=== PATIENT | female | born 2000 | race Caucasian/White ===

== ENCOUNTER 2021-04-27 11:20 | Inpatient (IN) ==
[2021-04-27] MEDS ORDERED: SODIUM CHLORIDE 0.9% 1000ML 1,000 ML IV ONE (12:12)
[2021-04-27] MEDS ORDERED: ONDANSETRON INJ 2 MG/ML 2 ML VIAL IV STA (12:12)
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
[2021-04-27 12:43] LABS: Basophils # (auto) 0.02 K/uL (0-0.2); Basophils % (auto) 0.1 %; Eosinophils # (auto) 0.03 K/uL (0-0.5); Eosinophils % (auto) 0.2 %; Hematocrit (blood only) 36.1 % (37-47); Hemoglobin 12.2 g/dL (12.0-16.0); Immature Granulocytes # (auto) 0.04 K/uL (0.00-0.02); Immature Granulocytes % (auto) 0.2 %; Lymphocytes % (auto) 7.3 %; Mean Corpuscular Hemoglobin 29.7 pg (25-34); Mean Corpuscular Hgb Conc 33.8 g/dL (32-36); Mean Corpuscular Volume 87.8 fL (80-100); Mean Platelet Volume 10.3 fL (7.4-10.4); Monocytes % (auto) 7.3 %; Neutrophils # (auto) 13.95 K/uL (1.4-6.5); Neutrophils % (auto) 84.9 %; Platelet Count 222 K/uL (130-400); RDW Coefficient of Variation 12.4 % (11.5-14.5); RDW Standard Deviation 39.6 fL (36.4-46.3); Red Blood Count 4.11 M/uL (4.2-5.4); White Blood Count 16.44 K/uL (4.8-10.8)
[2021-04-27 13:00] LABS: Pregnancy Test, Serum Negative (Negative)
[2021-04-27 13:04] LABS: Albumin Level 3.1 gm/dl (3.4-5.0); BUN Creatinine Ratio 15.3 (10-20); Calcium 9.1 mg/dl (8.5-10.1); Creatinine Clr Calc Pharmacy 177.2 ml/min; Est GFR (African American) 148.9 ml/min; Est GFR (Non-African American) 128.5 ml/min; Potassium 3.6 mmol/L (3.5-5.1)
[2021-04-27] MEDS ORDERED: KETOROLAC TROMETHAMINE 15 MG/ML VIAL IV ONE (13:04)
[2021-04-27 13:06] LABS: Albumin Globulin Ratio 0.8 (0.9-2); Bilirubin,Total 1.1 mg/dl (0.2-1); Globulin 3.9 gm/dl (2.5-4.0)
[2021-04-27] MEDS ORDERED: OPTIRAY 320 100ml IV ONE (13:30)
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
[2021-04-27] MEDS ORDERED: cefTRIAXone SODIUM 2,000 MG/70 ML BAG IV STA (14:00)
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
[2021-04-27] MEDS ORDERED: ACETAMINOPHEN 1,000 MG/100 ML VIAL IV STA (16:34)
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
[2021-04-27] MEDS ORDERED: ALUMINUM/MAGNESIUM SUSP 30 ML UDC PO PRN (18:46)
[2021-04-27] MEDS ORDERED: VANCOMYCIN CONSULT ACTIVE PRN (18:46)
[2021-04-27] MEDS ORDERED: POLYETHYLENE (MIRALAX) 17 GM PACK PO PRN (18:46)
[2021-04-27] MEDS ORDERED: MAGNESIUM HYDROXIDE SUSP 30 ML UDC PO PRN (18:46)
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
[2021-04-27] MEDS: SODIUM CHLORIDE 0.9% 1000ML 1,000 ML IV SCH (20:00)
[2021-04-27] MEDS ORDERED: VANCOMYCIN HCL 2,750 MG in SODIUM CHLORIDE 0.9% 500 ML IV STA (20:17)
[2021-04-27] MEDS: KETOROLAC TROMETHAMINE 15 MG/ML VIAL IV PRN (20:35)
[2021-04-27 22:43] LABS: Appearance Urine Clear (Clear); Bacteria Urine Automated Negative (Negative); Blood Urine 3+ (Negative); Color Urine Orange; Epithelial Cell Urine Auto >30 /lpf (0-5); Glucose Urine UA Negative (Negative); Ketones Urine 4+ (Negative); Leukocyte Esterase Urine Negative (Negative); Nitrite Urine Negative (Negative); Protein Urine 1+ (Negative); Specific Gravity Urine > 1.045 (1.000-1.030); Urobilinogen Urine Positive (Negative); pH Urine 6.5 (4.5-7.5)
[2021-04-27 22:51] LABS: Bilirubin Urine 1+ (Negative)
[2021-04-27 23:04] LABS: Mucus Urine Present (None Prsent)
[2021-04-28] MEDS: KETOROLAC TROMETHAMINE 15 MG/ML VIAL IV PRN ×4 (03:26→23:01)
[2021-04-28] MEDS: ACETAMINOPHEN 325 MG TAB PO PRN ×2 (03:36→19:39)
[2021-04-28] MEDS: VANCOMYCIN HCL 1,500 MG in SODIUM CHLORIDE 0.9% 500 ML IV SCH ×2 (05:09→16:16)
[2021-04-28] MEDS: SODIUM CHLORIDE 0.9% 1000ML 1,000 ML IV SCH ×2 (06:08→10:54)
[2021-04-28 06:36] LABS: Basophils # (auto) 0.02 K/uL (0-0.2); Basophils % (auto) 0.2 %; Eosinophils # (auto) 0.23 K/uL (0-0.5); Eosinophils % (auto) 1.9 %; Hematocrit (blood only) 35.5 % (37-47); Hemoglobin 11.9 g/dL (12.0-16.0); Immature Granulocytes # (auto) 0.02 K/uL (0.00-0.02); Immature Granulocytes % (auto) 0.2 %; Lymphocytes # (auto) 1.24 K/uL (1.2-3.4); Lymphocytes % (auto) 10.1 %; Mean Corpuscular Hemoglobin 29.4 pg (25-34); Mean Corpuscular Hgb Conc 33.5 g/dL (32-36); Mean Corpuscular Volume 87.7 fL (80-100); Mean Platelet Volume 10.3 fL (7.4-10.4); Monocytes # (auto) 0.83 K/uL (0.11-0.59); Monocytes % (auto) 6.7 %; Neutrophils # (auto) 9.96 K/uL (1.4-6.5); Neutrophils % (auto) 80.9 %; Platelet Count 220 K/uL (130-400); RDW Coefficient of Variation 12.3 % (11.5-14.5); RDW Standard Deviation 39.6 fL (36.4-46.3); Red Blood Count 4.05 M/uL (4.2-5.4)
[2021-04-28 07:12] LABS: Alanine Aminotransferase 38 U/L (12-78); Albumin Level 2.7 gm/dl (3.4-5.0); Aspartate Aminotransferase 13 U/L (15-37); BUN Creatinine Ratio 23.8 (10-20); Blood Urea Nitrogen 11 mg/dl (7-18); Calcium 8.7 mg/dl (8.5-10.1); Carbon Dioxide 20 mmol/L (21-32); Chloride 111 mmol/L (98-107); Creatinine Clr Calc Pharmacy 248.5 ml/min; Est GFR (African American) > 150.0 ml/min; Est GFR (Non-African American) 141.2 ml/min; Glucose 77 mg/dl (70-99); Magnesium 2.4 mg/dl (1.8-2.4); Potassium 3.3 mmol/L (3.5-5.1); Sodium 140 mmol/L (136-145)
[2021-04-28 07:15] LABS: Albumin Globulin Ratio 0.8 (0.9-2); Alkaline Phosphatase 77 U/L (45-117); Globulin 3.6 gm/dl (2.5-4.0); Total Protein 6.3 gm/dl (6.4-8.2)
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
--- NOTE | 2021-04-28 11:48 | Anesthesiology Consultation ---
Date of Service April 28, 2021 Assessment & Plan (1) Encounter for pre-operative examination: Chart Review Chart Review: Acceptable Risk for Surgery and Patient NOT seen in Pre Admission Testing Consults Requested none History Surgery Operation Date: 04/28/21 08:30 Proposed Procedures p Right Knee Incision and Drainage of Laceration - Red Vanegas DO s Possible Right Knee Arthrotomy with Incision And Drainage - Red Vanegas DO Height/Weight Height: 5 ft 7 in Weight: 110 kg Allergies Allergy/AdvReac Type Severity Reaction Status Date / Time lorazepam Allergy Unknown severe Verified 04/27/21 13:59 hallucinations Medications Home Medications Medication Instructions Recorded Confirmed Last Taken cephalexin 500 mg PO Q6H 14 Days #56 cap 04/25/21 04/27/21 04/26/21 norethindrone-e.estradiol-iron 1 tab PO QAM 04/25/21 04/27/21 04/26/21 [Jorge Luis Fe 12/10 ()] oxycodone 5 mg PO Q6H PRN #20 tab 04/25/21 04/27/21 04/26/21 14:00 sulfamethoxazole-trimethoprim 1 tab PO BID 14 Days #28 tab 04/25/21 04/27/21 04/26/21 [Bactrim DS] acetaminophen [Tylenol Extra 500 mg PO Q6H PRN 04/27/21 04/27/21 04/27/21 09:00 Strength] Active Medications Generic Name Dose Route Start Last Admin Trade Name Freq PRN Reason Stop Dose Admin Sodium Chloride 1,000 mls @ 100 mls/hr 04/27/21 18:46 04/28/21 10:54 Nss 1000ml IV 05/27/21 18:45 100 mls/hr .Q10H MARY Administration Vancomycin HCl 1,500 mg/ 530 mls @ 200 mls/hr 04/28/21 05:00 04/28/21 07:48 Sodium Chloride IV 05/05/21 04:59 Infused Q8H MARY Infusion Protocol Ketorolac Tromethamine 15 mg 04/27/21 18:46 04/28/21 10:49 Ketorolac Tromethamine 15 Mg/Ml Vial IV 05/02/21 18:45 15 mg Q6H PRN Administration Pain Miscellaneous 1 ea 04/28/21 00:00 04/28/21 07:35 Jorge Luis Fe 1/20 (28) - Order Awaiting Action N/A 05/28/21 00:00 Not Given QS MARY Past Medical History Medical History Anxiety Epilepsy Juvenile Past Family History Family History Mother Cancer Rheumatoid arthritis Grandfather (Maternal) Stroke Past Surgical History Surgical History S/P bunionectomy Social History Smoking Status: Smoker, status unknown Do You Dip or Chew Tobacco: No Hx Alcohol Use: Yes alcohol intake frequency: holidays/special occasions only Hx Substance Use: Yes substance use type: marijuana Last Used Substance: Days (ago) Physical Exam Vital Signs Last Vital Signs Temp 37.0 C 04/28/21 11:00 Pulse 104 H 04/28/21 11:00 Resp 17 04/28/21 11:00 BP 139/74 04/28/21 11:00 Pulse Ox 97 04/28/21 11:00 Testing Laboratory Results 04/28/21 06:21 04/28/21 06:21 Urine Color [place] 04/27/21 22:30 Urine Appearance Clear (Clear) 04/27/21 22:30 Urine pH 6.5 (4.5-7.5) 04/27/21 22:30 Ur Specific [place] > 1.045 (1.000-1.030) H 04/27/21 22:30 Urine Protein 1+ (Negative) H 04/27/21 22:30 Urine Glucose (UA) Negative (Negative) 04/27/21 22:30 Urine Ketones 4+ (Negative) H 04/27/21 22:30 Urine Nitrite Negative (Negative) 04/27/21 22:30 Ur Leukocyte Esterase Negative (Negative) 04/27/21 22:30 Urine WBC (Auto) 1-5 /hpf (0-5) 04/27/21 22:30 Urine RBC (Auto) 10-30 /hpf (0-4) H 04/27/21 22:30 U Hyaline Cast (Auto) 5-10 /lpf (0-5) H 04/27/21 22:30 U Epithel Cells (Auto) >30 /lpf (0-5) H 04/27/21 22:30 Urine Bacteria (Auto) Negative (Negative) 04/27/21 22:30 Other Testing UPT - neg
[2021-04-28] MEDS ORDERED: ePHEDrine sulfate 50 MG/ML AMP IV PRN (12:23)
[2021-04-28] MEDS ORDERED: ATROPINE SULFATE 0.1 MG/ML 10ML SYR IV PRN (12:23)
[2021-04-28] MEDS ORDERED: ONDANSETRON INJ 2 MG/ML 2 ML VIAL IV PRN (12:23)
[2021-04-28] MEDS ORDERED: PROMETHAZINE HCL 12.5 MG in SODIUM CHLORIDE 0.9% 50 ML IV PRN (12:23)
[2021-04-28] MEDS ORDERED: fentaNYL citrate 100 MCG/2 ML VIAL IV PRN (12:23)
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
[2021-04-28] MEDS ORDERED: LIDOCAINE 2% 2 ML VIAL/AMP(20MG/ML) INFIL ONE (12:27)
[2021-04-28] MEDS ORDERED: PROPOFOL IV EMULSION 10 MG/ML 20 ML VIAL IV ONE ×2 (12:27→14:44)
[2021-04-28] MEDS ORDERED: ONDANSETRON INJ 2 MG/ML 2 ML VIAL ONE (12:27)
[2021-04-28] MEDS ORDERED: DEXAMETHASONE SOD INJ 4 MG/ML VIAL ONE (12:27)
[2021-04-28] MEDS ORDERED: fentaNYL citrate 100 MCG/2 ML VIAL ONE (12:27)
[2021-04-28] MEDS ORDERED: KETOROLAC 30 MG/ML VIAL ONE (12:27)
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
[2021-04-28] MEDS ORDERED: ACETAMINOPHEN 1000 MG/100 ML IV IV ONE (13:35)
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
--- NOTE | 2021-04-28 15:27 | Anesthesiology Progress Note ---
Date of Service April 28, 2021 Anesthesia Post Procedure Vital Signs Vital Signs: Temp Pulse Pulse Pulse Resp BP Pulse Ox 04/28/21 12:03 37.2 C 99 H 20 135/82 97 04/28/21 11:00 37.0 C 104 H 17 139/74 97 04/28/21 08:00 83 04/28/21 07:31 37.0 C 100 H 17 126/81 97 04/28/21 03:29 37.2 C 100 H 18 145/84 H 96 04/28/21 00:45 83 04/27/21 22:32 37 C 89 16 144/84 H 97 04/27/21 20:05 37.1 C 86 18 144/77 H 98 04/27/21 18:58 94 H 04/27/21 18:49 36.5 C 98 H 14 124/72 98 Pulse Ox 04/28/21 12:03 04/28/21 11:00 04/28/21 08:00 04/28/21 07:31 04/28/21 03:29 04/28/21 00:45 04/27/21 22:32 04/27/21 20:05 04/27/21 18:58 04/27/21 18:49 97 Pain Intensity Right Arm: Pain Intensity: 0 Right Knee: Pain Intensity: 0 Transfer of Care Handoff Completed per policy Notes Mental Status: alert / awake / arousable and participated in evaluation Patient Amnestic to Procedure: Yes Nausea / Vomiting: adequately controlled Pain: adequately controlled Airway Patency, RR, SpO2: stable & adequate BP & HR: stable & adequate Hydration State: stable & adequate Anesthetic Complications: no major complications apparent and Pt Satisfied with anesthetic care
--- NOTE | 2021-04-28 15:58 | Anesthesiology Progress Note ---
Date of Service April 28, 2021 Anesthesia Post Procedure Vital Signs Vital Signs: Temp Pulse Pulse Pulse Pulse Resp BP 04/28/21 15:50 36.6 C 87 21 132/85 04/28/21 15:40 36.6 C 84 20 132/85 04/28/21 15:30 90 15 161/97 H 04/28/21 15:20 110 H 18 163/99 H 04/28/21 15:14 36.7 C 110 H 18 141/114 H 04/28/21 12:03 37.2 C 99 H 20 135/82 04/28/21 11:00 37.0 C 104 H 17 139/74 04/28/21 08:00 83 04/28/21 07:31 37.0 C 100 H 17 126/81 04/28/21 03:29 37.2 C 100 H 18 145/84 H 04/28/21 00:45 83 04/27/21 22:32 37 C 89 16 144/84 H 04/27/21 20:05 37.1 C 86 18 144/77 H 04/27/21 18:58 94 H 04/27/21 18:49 36.5 C 98 H 14 124/72 Pulse Ox Pulse Ox 04/28/21 15:50 951 H 04/28/21 15:40 98 04/28/21 15:30 97 04/28/21 15:20 97 04/28/21 15:14 99 04/28/21 12:03 97 04/28/21 11:00 97 04/28/21 08:00 04/28/21 07:31 97 04/28/21 03:29 96 04/28/21 00:45 04/27/21 22:32 97 04/27/21 20:05 98 04/27/21 18:58 04/27/21 18:49 98 97 Pain Intensity Right Arm: Pain Intensity: 0 Right Knee: Pain Intensity: 2 Transfer of Care Handoff Completed per policy Notes Mental Status: alert / awake / arousable Patient Amnestic to Procedure: Yes Nausea / Vomiting: adequately controlled Pain: adequately controlled Airway Patency, RR, SpO2: stable & adequate BP & HR: stable & adequate Hydration State: stable & adequate Anesthetic Complications: no major complications apparent
[2021-04-28] MEDS: ONDANSETRON INJ 2 MG/ML 2 ML VIAL IV PRN (16:17)
[2021-04-28] MEDS ORDERED: VANCOMYCIN TROUGH ONE ×2 (20:30→23:30)
[2021-04-29] MEDS: VANCOMYCIN HCL 1,500 MG in SODIUM CHLORIDE 0.9% 500 ML IV SCH ×4 (00:22→23:54)
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
[2021-04-29] MEDS: KETOROLAC TROMETHAMINE 15 MG/ML VIAL IV PRN ×3 (06:25→22:27)
[2021-04-29] MEDS: ONDANSETRON INJ 2 MG/ML 2 ML VIAL IV PRN ×2 (06:27→11:34)
[2021-04-29] MEDS: SODIUM CHLORIDE 0.9% 1000ML 1,000 ML IV SCH ×2 (07:45→11:34)
[2021-04-29 08:05] LABS: Hematocrit (blood only) 33.7 % (37-47); Hemoglobin 11.4 g/dL (12.0-16.0); Mean Corpuscular Hemoglobin 29.5 pg (25-34); Mean Corpuscular Volume 87.3 fL (80-100); Mean Platelet Volume 11.1 fL (7.4-10.4); Platelet Count 239 K/uL (130-400); RDW Coefficient of Variation 12.3 % (11.5-14.5); RDW Standard Deviation 39.4 fL (36.4-46.3); Red Blood Count 3.86 M/uL (4.2-5.4); White Blood Count 11.41 K/uL (4.8-10.8)
[2021-04-29 08:15] LABS: BUN Creatinine Ratio 22.1 (10-20); Blood Urea Nitrogen 10 mg/dl (7-18); Calcium 8.6 mg/dl (8.5-10.1); Carbon Dioxide 23 mmol/L (21-32); Chloride 112 mmol/L (98-107); Creatinine Clr Calc Pharmacy 243.1 ml/min; Est GFR (African American) > 150.0 ml/min; Est GFR (Non-African American) 140.2 ml/min; Glucose 88 mg/dl (70-99); Potassium 3.6 mmol/L (3.5-5.1); Sodium 141 mmol/L (136-145)
[2021-04-29 08:19] LABS: Mean Corpuscular Hgb Conc 33.8 g/dL (32-36)
--- NOTE | 2021-04-29 11:00 | Orthopedic Progress Note ---
Date of Service April 29, 2021 Assessment & Plan (1) Wound infection: Postop day 1 status post I&D right knee wound infection Patient may be out of bed weightbearing as tolerated with the immobilizer on. Plan for dressing change likely starting tomorrow with packing removal. Pain management as written Cultures from the OR showing rare gram-positive cocci. Patient currently on vancomycin. Await final cultures. Okay for patient to be transferred to [facility] floor if okay with medicine serv ice. Admission and Anticipated Discharge Date Admission Date: April 27, 2021 Subjective Postop day 1 Patient sitting up in bed awake and alert. She is eating a late breakfast. She states that the pain is controlled at this time. No new complaints. Discussed use of her immobilizer and weightbearing status. Physical Exam Physical Exam: Dressings are clean, dry, and intact. Calves are soft and nontender. Neurovascular is intact. Toes are mobile. Results & Data ([facility]) Vital Signs (Past 12 Hours) Vital Signs Temp Pulse Pulse Pulse Resp BP Pulse Ox 04/29/21 08:00 89 04/29/21 07:28 36.9 C 73 16 127/83 96 04/29/21 04:18 36.9 C 90 18 113/75 96 04/29/21 00:00 76 04/28/21 23:36 37.1 C 73 17 120/75 94 Laboratory Results Laboratory Results WBC 11.41 K/uL (4.8-10.8) H 04/29/21 05:30 RBC 3.86 M/uL (4.2-5.4) L 04/29/21 05:30 Hgb 11.4 g/dL (12.0-16.0) L 04/29/21 05:30 Hct 33.7 % (37-47) L 04/29/21 05:30 MCV 87.3 fL (80-100) 04/29/21 05:30 MCH 29.5 pg (25-34) 04/29/21 05:30 MCHC 33.8 g/dL (32-36) 04/29/21 05:30 RDW Std Deviation 39.4 fL (36.4-46.3) 04/29/21 05:30 RDW Coeff of Carlos 12.3 % (11.5-14.5) 04/29/21 05:30 Plt Count 239 K/uL (130-400) 04/29/21 05:30 MPV 11.1 fL (7.4-10.4) H 04/29/21 05:30 Immature Gran % (Auto) 0.2 % 04/28/21 06:21 Neut % (Auto) 80.9 % 04/28/21 06:21 Lymph % (Auto) 10.1 % 04/28/21 06:21 Braxton % (Auto) 6.7 % 04/28/21 06:21 Eos % (Auto) 1.9 % 04/28/21 06:21 Baso % (Auto) 0.2 % 04/28/21 06:21 Neut # (Auto) 9.96 K/uL (1.4-6.5) H 04/28/21 06:21 Lymph # (Auto) 1.24 K/uL (1.2-3.4) 04/28/21 06:21 Braxton # (Auto) 0.83 K/uL (0.11-0.59) H 04/28/21 06:21 Eos # (Auto) 0.23 K/uL (0-0.5) 04/28/21 06:21 Baso # (Auto) 0.02 K/uL (0-0.2) 04/28/21 06:21 Immature Gran # (Auto) 0.02 K/uL (0.00-0.02) 04/28/21 06:21 ESR 47 mm/hr (0-20) H 04/28/21 06:21 Sodium 141 mmol/L (136-145) 04/29/21 06:11 Potassium 3.6 mmol/L (3.5-5.1) 04/29/21 06:11 Chloride 112 mmol/L (98-107) H 04/29/21 06:11 Carbon Dioxide 23 mmol/L (21-32) 04/29/21 06:11 Anion Gap 6.0 (3-11) 04/29/21 06:11 BUN 10 mg/dl (7-18) 04/29/21 06:11 Creatinine 0.46 mg/dl (0.6-1.2) L 04/29/21 06:11 Est Cr Clr Drug Dosing 243.1 ml/min 04/29/21 06:11 Est GFR ( Amer) > 150.0 ml/min 04/29/21 06:11 Est GFR (Non-Af Amer) 140.2 ml/min 04/29/21 06:11 BUN/Creatinine Ratio 22.1 (10-20) H 04/29/21 06:11 Glucose 88 mg/dl (70-99) 04/29/21 06:11 Calcium 8.6 mg/dl (8.5-10.1) 04/29/21 06:11 Magnesium 2.0 mg/dl (1.8-2.4) 04/29/21 06:07 Total Bilirubin 1.0 mg/dl (0.2-1) 04/28/21 06:21 AST 13 U/L (15-37) L 04/28/21 06:21 ALT 38 U/L (12-78) 04/28/21 06:21 Alkaline Phosphatase 77 U/L (45-117) 04/28/21 06:21 C-Reactive Protein 17.20 mg/dl (0-0.29) H 04/28/21 06:21 Total Protein 6.3 gm/dl (6.4-8.2) L 04/28/21 06:21 Albumin 2.7 gm/dl (3.4-5.0) L 04/28/21 06:21 Globulin 3.6 gm/dl (2.5-4.0) 04/28/21 06:21 Albumin/Globulin Ratio 0.8 (0.9-2) L 04/28/21 06:21 Lipase 62 U/L (73-393) L 04/27/21 12:30 HCG, Qual Negative (Negative) 04/27/21 12:30 Urine Color [place] 04/27/21 22:30 Urine Appearance Clear (Clear) 04/27/21 22:30 Urine pH 6.5 (4.5-7.5) 04/27/21 22:30 Ur Specific [place] > 1.045 (1.000-1.030) H 04/27/21 22:30 Urine Protein 1+ (Negative) H 04/27/21 22:30 Urine Glucose (UA) Negative (Negative) 04/27/21 22:30 Urine Ketones 4+ (Negative) H 04/27/21 22:30 Urine Blood 3+ (Negative) H 04/27/21 22:30 Urine Nitrite Negative (Negative) 04/27/21 22:30 Urine Bilirubin 1+ (Negative) H 04/27/21 22:30 Urine Urobilinogen Positive (Negative) H 04/27/21 22:30 Ur Leukocyte Esterase Negative (Negative) 04/27/21 22:30 Urine WBC (Auto) 1-5 /hpf (0-5) 04/27/21 22:30 Urine RBC (Auto) 10-30 /hpf (0-4) H 04/27/21 22:30 U Hyaline Cast (Auto) 5-10 /lpf (0-5) H 04/27/21 22:30 U Epithel Cells (Auto) >30 /lpf (0-5) H 04/27/21 22:30 Urine Bacteria (Auto) Negative (Negative) 04/27/21 22:30 Urine Mucus Present (None Prsent) A 04/27/21 22:30 Urine Yeast Not Reportable 04/27/21 22:30 Vancomycin Trough 14.0 mcg/ml (See Comment) 04/28/21 23:24 COVID-19 Eval Order Covid19 at [facility] 04/27/21 14:22 SARS-CoV-2 (PCR) NEGATIVE (Negative) 04/27/21 14:22
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
--- NOTE | 2021-04-29 14:54 | Pharmacy Report ---
Pharmacy Abx Dose Short Note - Date of Service April 29, 2021 - Assessment & Plan Assessment 21 year old F receiving vancomycin/ceftriaxone for treatment of SSTI/degloving wound Day # 3 of vancomycin, ceftriaxone added today, preliminary knee culture growing gram negative bacilli. Plan Vancomycin * Trough level of 14 mcg/mL is slightly below goal, however trough drawn prior to steady state and patient at risk for accumulation with BMI >35. * Continue dose of 1500 mg q8H * Goal trough level 15-20 mcg/mL * Trough ordered for 04/29 @1530 Pharmacy will continue to follow and will adjust dose/frequency as necessary. Thank you.
[2021-04-29] MEDS: cefTRIAXone SODIUM 2,000 MG in DEXTROSE 5% 50 ML IV SCH (15:29)
[2021-04-29] MEDS ORDERED: VANCOMYCIN TROUGH ONE (15:30)
--- NOTE | 2021-04-29 15:59 | XRay Report ---
KUB HISTORY: Nausea. Generalized abdominal pain. Rule out obstruction COMPARISON: Abdomen and pelvis CT 04/27/2021. FINDINGS: The bowel gas pattern is unremarkable. There are no dilated loops of small bowel to suggest an obstruction. No renal calculi. No ureteral calculi. No pneumoperitoneum or pneumatosis. IMPRESSION: No evidence for bowel obstruction. ACT 112: Negative or not required by law. Electronically signed by: Darian Hinson M.D. 04/29/2021 3:58 PM
[2021-04-29] MEDS: NEOMYCIN/POLYMYX/BACITR OINT 15 GM TUBE EXT SCH (22:29)
[2021-04-30] MEDS: SODIUM CHLORIDE 0.9% 1000ML 1,000 ML IV SCH ×4 (04:49→21:51)
[2021-04-30] MEDS: KETOROLAC TROMETHAMINE 15 MG/ML VIAL IV PRN ×2 (05:46→11:41)
[2021-04-30 06:15] LABS: Hematocrit (blood only) 32.2 % (37-47); Hemoglobin 10.6 g/dL (12.0-16.0); Mean Corpuscular Hemoglobin 29.4 pg (25-34); Mean Corpuscular Hgb Conc 32.9 g/dL (32-36); Mean Corpuscular Volume 89.4 fL (80-100); Mean Platelet Volume 10.6 fL (7.4-10.4); Platelet Count 244 K/uL (130-400); RDW Coefficient of Variation 12.3 % (11.5-14.5); White Blood Count 7.12 K/uL (4.8-10.8)
[2021-04-30 06:51] LABS: BUN Creatinine Ratio 24.7 (10-20); Blood Urea Nitrogen 10 mg/dl (7-18); Calcium 8.3 mg/dl (8.5-10.1); Carbon Dioxide 23 mmol/L (21-32); Chloride 113 mmol/L (98-107); Creatinine Clr Calc Pharmacy 279.6 ml/min; Est GFR (African American) > 150.0 ml/min; Est GFR (Non-African American) 146.8 ml/min; Glucose 81 mg/dl (70-99); Phosphorus 3.2 mg/dl (2.5-4.9); Potassium 3.5 mmol/L (3.5-5.1); Sodium 143 mmol/L (136-145)
[2021-04-30] MEDS: VANCOMYCIN HCL 1,500 MG in SODIUM CHLORIDE 0.9% 500 ML IV SCH (07:40)
[2021-04-30] MEDS: NEOMYCIN/POLYMYX/BACITR OINT 15 GM TUBE EXT SCH ×2 (07:41→20:14)
--- NOTE | 2021-04-30 12:45 | Orthopedic Progress Note ---
Date of Service April 30, 2021 Assessment & Plan (1) Wound infection: Postop day 2 status post I&D right knee wound infection Patient may be out of bed weightbearing as tolerated with the immobilizer on. Remainder of packing will be removed tomorrow. I do not see a need for a external wound VAC. Pain management as written Cultures as noted. Patient currently on ceftriaxone. Admission and Anticipated Discharge Date Admission Date: April 27, 2021 Subjective Postop day 2 Patient sitting up in bed awake and alert. States that her pain has been controlled. She is nervous about having her packing partially removed today. Wound care nursing and also the patient's floor nurse are present. No new complaints today. Physical Exam Physical Exam: Immobilizer is removed. Current dressing taken down. Her wound appears benign. She has much less erythema and swelling in the area. The wound appears very benign. 1 inch iodoform gauze is protruding out from the wound. 12 inches of the iodoform gauze was removed without difficulty. Patient tolerated it well. The wound was redressed with Adaptic, 4 x 4's, Kerlix, and [place] wrap. Immobilizer was placed back on. Results & Data ([facility]) Vital Signs (Past 12 Hours) Vital Signs Temp Pulse Resp BP Pulse Ox 04/30/21 07:53 37.0 C 85 16 142/91 H 96 04/30/21 03:23 37 C 83 18 140/83 94 Diagnostic Findings Name: JANN AJ Acct: [id number] Status: ADM IN : 2000 [facility] [place] Date: 04/27/21 Age: 21 Sex: F Dis Date: Loc: Medical/Surgical/Ortho 3 [facility] [place]/Bed: W356-1 Spec: [id number] Collected: 04/28/21 Received: 04/28/21-1450 [facility] Dr: Red Vanegas,D.O. Copy To: Crystal Tejeda DO Source: Knee,Right OV Order: Ordered: Aer/Gale Cult/Sm Comments: Comment Culture set #1- Right knee wound Procedure Result Verified Site Gram Stain Final 04/29/21-0850 Gram Stain Result Many Polys Rare Gram Positive Cocci Aero/Gale Cult Preliminary 04/30/21-1202 Organism 1 Aeromonas caviae Quantity Few Sens Sensitivities to Follow +MixWound Plus Low Counts of Probable Skin Anabella A caviae RX M.I.C. --- --------- Amox/Clav I 06/07 Amp/Sul I 06/07 Cefazolin R >16 Cefepime S <=2 Ceftriaxone S <=1 Ciprofloxacin S <=0.25 Gentamicin S <=4 Levofloxacin S <=0.5 Meropenem S <=1 Trimeth/Sulfa S <=2/38 Pip/Tazo S <=16 S = SENSITIVE I = INTERMEDIATE R = RESISTANT
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
[2021-04-30] MEDS: cefTRIAXone SODIUM 2,000 MG in DEXTROSE 5% 50 ML IV SCH (13:56)
[2021-04-30] MEDS: ACETAMINOPHEN 325 MG TAB PO PRN (20:25)
[2021-05-01] MEDS: SODIUM CHLORIDE 0.9% 1000ML 1,000 ML IV SCH ×2 (04:25→20:02)
[2021-05-01] MEDS: ACETAMINOPHEN 325 MG TAB PO PRN ×2 (04:26→10:26)
[2021-05-01 07:47] LABS: Hematocrit (blood only) 34.4 % (37-47); Hemoglobin 11.4 g/dL (12.0-16.0); Mean Corpuscular Hemoglobin 29.4 pg (25-34); Mean Corpuscular Hgb Conc 33.1 g/dL (32-36); Mean Corpuscular Volume 88.7 fL (80-100); Mean Platelet Volume 11.7 fL (7.4-10.4); Platelet Count 235 K/uL (130-400); RDW Coefficient of Variation 12.1 % (11.5-14.5); RDW Standard Deviation 39.2 fL (36.4-46.3); Red Blood Count 3.88 M/uL (4.2-5.4); White Blood Count 8.25 K/uL (4.8-10.8)
[2021-05-01 07:56] LABS: BUN Creatinine Ratio 14.8 (10-20); Blood Urea Nitrogen 6 mg/dl (7-18); Calcium 9.2 mg/dl (8.5-10.1); Carbon Dioxide 24 mmol/L (21-32); Chloride 108 mmol/L (98-107); Creatinine Clr Calc Pharmacy 260.1 ml/min; Est GFR (African American) > 150.0 ml/min; Est GFR (Non-African American) 143.4 ml/min; Glucose 93 mg/dl (70-99); Potassium 3.3 mmol/L (3.5-5.1); Sodium 138 mmol/L (136-145)
[2021-05-01] MEDS ORDERED: POTASSIUM CHLORIDE CRTAB 20 MEQ TABCR PO STA (09:01)
[2021-05-01] MEDS: NEOMYCIN/POLYMYX/BACITR OINT 15 GM TUBE EXT SCH ×2 (09:19→21:41)
[2021-05-01] MEDS: ONDANSETRON INJ 2 MG/ML 2 ML VIAL IV PRN ×2 (10:08→15:57)
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
[2021-05-01] MEDS: cefTRIAXone SODIUM 2,000 MG in DEXTROSE 5% 50 ML IV SCH (15:28)
[2021-05-02 05:59] LABS: Hematocrit (blood only) 34.4 % (37-47); Hemoglobin 11.6 g/dL (12.0-16.0); Mean Corpuscular Hemoglobin 29.1 pg (25-34); Mean Corpuscular Hgb Conc 33.7 g/dL (32-36); Mean Corpuscular Volume 86.2 fL (80-100); Mean Platelet Volume 10.1 fL (7.4-10.4); Platelet Count 260 K/uL (130-400); RDW Coefficient of Variation 11.9 % (11.5-14.5); RDW Standard Deviation 37.2 fL (36.4-46.3); Red Blood Count 3.99 M/uL (4.2-5.4); White Blood Count 8.61 K/uL (4.8-10.8)
[2021-05-02 06:25] LABS: BUN Creatinine Ratio 11.1 (10-20); Blood Urea Nitrogen 5 mg/dl (7-18); Calcium 9.3 mg/dl (8.5-10.1); Carbon Dioxide 27 mmol/L (21-32); Chloride 107 mmol/L (98-107); Creatinine Clr Calc Pharmacy 228.2 ml/min; Est GFR (African American) > 150.0 ml/min; Est GFR (Non-African American) 137.3 ml/min; Glucose 88 mg/dl (70-99); Potassium 3.6 mmol/L (3.5-5.1); Sodium 141 mmol/L (136-145)
[2021-05-02] MEDS: NEOMYCIN/POLYMYX/BACITR OINT 15 GM TUBE EXT SCH ×2 (10:49→19:40)
--- NOTE | 2021-05-02 12:08 | Orthopedic Progress Note ---
Date of Service May 01, 2021 Assessment & Plan (1) Wound infection: Postop day 3 status post I&D right knee wound infection Patient may be out of bed weightbearing as tolerated with the immobilizer on. All packing removed from wound. Pain management as written Cultures as noted. Patient currently on ceftriaxone. As per Medicine Service Admission and Anticipated Discharge Date Admission Date: April 27, 2021 Subjective POD 3 Pt sitting in chair at bedside. Helped back into bed by nursing staff. Pt with some anxious moments off and on with question of nausea. Pt received Zofran at the time of my visit which she states it seemed to help her. Pain controlled. Nervous about getting the rest of the packing removed from her knee wound. No other concerns presently. Physical Exam Physical Exam: Dressings removed. Wound continues to appear benign. Minimimal to no erythema. Swelling continues to resolve. Calves soft, NT. NV intact. All packing removed from the wound without difficulty. Wound redressed. Results & Data ([facility]) Vital Signs (Past 12 Hours) Vital Signs Temp Pulse Resp BP Pulse Ox 05/02/21 07:45 36.9 C 77 16 134/83 95
--- NOTE | 2021-05-02 12:26 | Orthopedic Progress Note ---
Date of Service May 02, 2021 Assessment & Plan (1) Wound infection: Postop day 4 status post I&D right knee wound infection Patient may be out of bed weightbearing as tolerated with the immobilizer on. All packing removed from wound. Pain management as written/needed Cultures as noted. Patient currently on ceftriaxone. Switching to orals upon dc. As per Medicine Service Orthopedics will sign off at this time. No further surgery needed. Continue daily dressing changes. Please call with any questions. Instructions will be placed in the discharge instructions section. Follow-up with Dr. Rosario in 10 to 14 days from the day of surgery. Admission and Anticipated Discharge Date Admission Date: April 27, 2021 Supervising Physician Co-Signing Physician Notes Patient seen and examined. Agree with KWAKU [place]'s note as above. Patient is resting comfortably. Denies any pain in her right knee. Only complains of persistent nausea. Subjective Postop day 4 Patient sitting in her chair at the bedside. Patient states she feels well and is doing well with her physical therapy. She has little to no pain with her PT today. She has not been taking really anything in the way of analgesia. She feels though that the antibiotics are causing her nausea. She is requesting Zofran upon discharge to help with this. No other complaints at this time. Physical Exam Physical Exam: Dressings removed. Wound continues to improve. Essentially no erythema noted. She had some scant drainage on the dressings. She has scant serous drainage noted from the lateral portal where the packing was removed. This area is healing well. Cannot express any further drainage from the wound at this time and palpation is nontender. Suture line is intact. Wound redressed. Results & Data ([facility]) Vital Signs (Past 12 Hours) Vital Signs Temp Pulse Resp BP Pulse Ox 05/02/21 07:45 36.9 C 77 16 134/83 95
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
[2021-05-02] MEDS: ONDANSETRON INJ 2 MG/ML 2 ML VIAL IV PRN (15:40)
[2021-05-02] MEDS: cefTRIAXone SODIUM 2,000 MG in DEXTROSE 5% 50 ML IV SCH (15:40)
[2021-05-03 06:46] LABS: Hematocrit (blood only) 36.7 % (37-47); Hemoglobin 12.5 g/dL (12.0-16.0); Mean Corpuscular Hemoglobin 29.7 pg (25-34); Mean Corpuscular Hgb Conc 34.1 g/dL (32-36); Mean Corpuscular Volume 87.2 fL (80-100); Mean Platelet Volume 10.4 fL (7.4-10.4); Platelet Count 281 K/uL (130-400); RDW Coefficient of Variation 12.3 % (11.5-14.5); RDW Standard Deviation 38.9 fL (36.4-46.3); Red Blood Count 4.21 M/uL (4.2-5.4); White Blood Count 9.65 K/uL (4.8-10.8)
[2021-05-03 07:04] LABS: BUN Creatinine Ratio 18.7 (10-20); Blood Urea Nitrogen 11 mg/dl (7-18); Calcium 9.2 mg/dl (8.5-10.1); Carbon Dioxide 29 mmol/L (21-32); Chloride 104 mmol/L (98-107); Creatinine Clr Calc Pharmacy 192.8 ml/min; Est GFR (African American) > 150.0 ml/min; Est GFR (Non-African American) 129.9 ml/min; Glucose 93 mg/dl (70-99); Potassium 3.8 mmol/L (3.5-5.1); Sodium 139 mmol/L (136-145)
[2021-05-03] MEDS: NEOMYCIN/POLYMYX/BACITR OINT 15 GM TUBE EXT SCH (10:40)
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
== END 2021-05-03 13:24 | disposition home or self-care (01) | DRG 581 ==
LOC: ED 11:20 → SUATTDRO 17:06 → 2E 17:06 → 3W 04-29 12:56
DX: G40.A09 Absence epileptic syndrome, not intractable, without status epilepticus; S80.01XA Contusion of right knee, initial encounter; B96.89 Other specified bacterial agents as the cause of diseases classified elsewhere; S81.001A Unspecified open wound, right knee, initial encounter; V29.9XXA Motorcycle rider (driver) (passenger) injured in unspecified traffic accident, initial encounter; Y92.89 Other specified places as the place of occurrence of the external cause; S93.401A Sprain of unspecified ligament of right ankle, initial encounter; S50.311A Abrasion of right elbow, initial encounter; Z79.3 Long term (current) use of hormonal contraceptives

== ENCOUNTER 2024-01-11 05:37 | Inpatient (IN) ==
--- NOTE | 2024-01-03 12:15 | Anesthesiology Consultation ---
Date of Service January 03, 2024 Assessment & Plan (1) Encounter for pre-operative examination: Chart Review Chart Review: microsystems engineer initiated -Infectious Disease screening: Per PAT nursing assessment on 01/03/24. No known infectious disease contacts in past 10 days or current infectious disease symptoms. No recent travel outside the country. Right Knee I&D 04/28/21= Done under GA with LMA #5 (iGel). Atraumatic x 1 History Surgery Operation Date: 01/11/24 09:00 Proposed Procedures p Section in LD - Renzo Palomino MD Height/Weight Height: 5 ft 7 in Weight: 112.037 kg Allergies Allergy/AdvReac Type Severity Reaction Status Date / Time lorazepam Allergy Unknown severe Verified 01/03/24 11:47 hallucinations Medications Home Medications Medication Instructions Recorded Confirmed Last Taken vitamins no.144-folic 2 tab PO QAM 08/06/23 01/03/24 10/31/23 acid 400 mcg chewable tablet 2100 () ferrous sulfate 325 mg (65 mg 325 mg PO QAM 01/03/24 01/03/24 Unknown iron) tablet Past Medical History Medical History Anxiety Depression Epilepsy - juvenile, last seizure 2008 History of asthma as a child, no current issues History of COVID-19 07/2023, home test, not hosp; low grade fever, sore throat, cough, congestion>resolved Past Family History Family History Mother Rheumatoid arthritis Cancer TIA (transient ischemic attack) Grandfather (Maternal) Stroke Past Surgical History Surgical History Hx of knee surgery I&D Hx of wisdom tooth extraction S/P bunionectomy x2 Social History Smoking Status: Never smoker Do You Dip or Chew Tobacco: No Hx Alcohol Use: Yes alcohol intake frequency: other Alcohol Intake Frequency Comment: very rarely and not while Hx Substance Use: No substance use type: does not use
[2024-01-11] MEDS: LACTATED RINGER'S 1,000 ML IV SCH (06:05)
[2024-01-11 06:36] LABS: Basophils # (auto) 0.03 K/uL (0.00-0.20); Basophils % (auto) 0.3 %; Eosinophils # (auto) 0.17 K/uL (0.00-0.50); Eosinophils % (auto) 1.6 %; Hematocrit (blood only) 35.5 % (37.0-47.0); Hemoglobin 11.9 g/dl (12.0-16.0); Immature Granulocytes # (auto) 0.04 K/uL (0.01-0.20); Immature Granulocytes % (auto) 0.4 %; Lymphocytes # (auto) 1.77 K/uL (1.20-3.40); Lymphocytes % (auto) 16.5 %; Mean Corpuscular Hemoglobin 27.9 pg (25.0-34.0); Mean Corpuscular Hgb Conc 33.5 g/dL (32.0-36.0); Mean Corpuscular Volume 83.3 fL (80.0-100.0); Mean Platelet Volume 11.1 fL (9.4-12.4); Monocytes # (auto) 0.71 K/uL (0.11-0.59); Monocytes % (auto) 6.6 %; Neutrophils # (auto) 8.01 K/uL (1.40-6.50); Neutrophils % (auto) 74.6 %; Platelet Count 221 K/uL (130-400); RDW Coefficient of Variation 14.4 % (11.5-14.5); RDW Standard Deviation 43.5 fL (36.4-46.3); Red Blood Count 4.26 M/uL (4.20-5.40); White Blood Count 10.73 K/ul (4.8-10.8)
[2024-01-11] MEDS ORDERED: MoRPHine SULFATE PF 1 MG/ML 10 ML AMP/VIAL ONE (06:42)
[2024-01-11] MEDS ORDERED: OXYTOCIN 10 UNITS/ML VIAL ONE ×3 (06:43)
[2024-01-11] MEDS ORDERED: fentaNYL citrate PF 100 MCG/2 ML VIAL ONE (06:43)
[2024-01-11] MEDS: CITRIC ACID/SODIUM CITRATE 15 ML UDC PO SCH (07:17)
--- NOTE | 2024-01-11 07:30 | History & Physical Bridge Note ---
Date of Service January 11, 2024 History & Physical Bridge Note I have examined the patient, reviewed the History & Physical and in the interval since the performance of the History & Physical I have noted the following changes of clinical significance: no changes noted Bed side US: Breech confirmed Patient signed an informed consent for Primary Csection All questions were answered.
[2024-01-11] MEDS: ceFAZolin 2000MG 2,000 MG/15 ML SYR IV SCH (07:40)
[2024-01-11] MEDS ORDERED: ONDANSETRON INJ 2 MG/ML 2 ML VIAL ONE (08:23)
[2024-01-11] MEDS ORDERED: NALBUPHINE HCL 5 MG in SYRINGE 0 ML IV PRN (08:28)
[2024-01-11] MEDS ORDERED: ePHEDrine sulfate 50 MG/ML AMP IV PRN (08:28)
[2024-01-11] MEDS ORDERED: diphenhydrAMINE 50 MG/ML VIAL IV PRN (08:28)
[2024-01-11] MEDS ORDERED: NALOXONE HCL 0.4 MG/1 ML VIAL/CARP IV PRN (08:28)
[2024-01-11] MEDS ORDERED: NALOXONE HCL 0.08 MG in SYRINGE 1.8 ML IV PRN (08:28)
[2024-01-11] MEDS ORDERED: MoRPHine SULFATE PF 1 MG/ML 10 ML AMP/VIAL INT SPINAL ONE (08:28)
[2024-01-11] MEDS ORDERED: HYDROmorphone INJ 0.5 MG/0.5 ML SYR IV PRN (08:28)
[2024-01-11] MEDS ORDERED: NALOXONE HCL 1 MG in SODIUM CHLORIDE 0.9% 1,000 ML IV PRN (08:28)
[2024-01-11] MEDS ORDERED: DC INTRASPINAL MORPHINE SCH (08:30)
[2024-01-11] MEDS ORDERED: NO NARCOTICS OR SEDATIVES SCH (08:30)
[2024-01-11] MEDS ORDERED: SODIUM CHLORIDE 0.9% 1,000 ML IV SCH (08:30)
[2024-01-11] MEDS ORDERED: diphenhydrAMINE 50 MG/ML VIAL ONE (09:21)
[2024-01-11] MEDS ORDERED: HYDROCORTISONE ACETATE 25 MG SUPP PR PRN (09:28)
[2024-01-11] MEDS ORDERED: BENZOCAINE 20% SPRY 85 APPLN/85 GM CAN EXT PRN (09:28)
[2024-01-11] MEDS ORDERED: SENNA 8.6 MG TAB PO PRN (09:28)
[2024-01-11] MEDS ORDERED: DIPHTHER/TETAN/PERTUS Vaccine (Tdap, Adol/Adult) 0.5mL IM ONE (09:28)
[2024-01-11] MEDS ORDERED: MAGNESIUM HYDROXIDE SUSP 30 ML UDC PO PRN (09:28)
--- NOTE | 2024-01-11 09:32 | Operative Report ---
Post Operative Report Pre & Post Diagnosis Operation Date: 01/11/24 07:30 Pre-Op Diagnosis: Primary Breech section. Coretta breech. Post-Op Diagnosis: Primary Breech section. Coretta breech. Delivery of live female child at 0822 I identified the patient and participated in the time-out.: Yes Procedure Operation Date: 01/11/24 07:30 Actual Procedures p Primary Section in LD,delivery of live female child at 0822 - Amanda Gatica MD Surgeon Amanda Gatica MD [employer] Machine Setter KWAKU Quach Estimated Blood Loss 500 Findings Consistent with Post-Op Diagnosis Baby was a viable female infant delivered in coretta breech presentation at 0 8:22 AM, Apgars were 8/9, weight is 365 0 g. Maternal findings, normal uterus, fallopian tubes and ovaries. Specimens Placenta Drains Reed catheter drained 50 mL of clear urine Anesthesia Type Spinal Complications none Indications Patient is a 23-year-old G1, P0 at 39 weeks and 1 day gestation who was scheduled for primary section for persistent breech presentation at term. Bedside ultrasound was done before surgery and confirmed coretta breech presentation. Description of Procedure Patient was taken to operating room where a spinal anesthesia was given without difficulty. She was placed in dorsal supine position with a leftward tilt. She was prepared and draped in usual sterile fashion. A financial skin incision was made and carried through to the underlying layer of fascia with the Bovie. Fascia was incised in the midline and incision was extended laterally with the help of Walker scissors. Then the upper aspect of the fascial incision was grasped with 2 Marlon clamps elevated the underlying rectus muscles were dissected off sharply with Walker scissors. Same thing was done on the lower incision. Then the muscles were in the midline, peritoneum was identified grasped with 2 pickups and entered sharply with Metzenbaum scissors. Peritoneal incision was extended superior and inferiorly with good visualization of the bladder. The bladder blade was inserted. Vesicouterine peritoneum was identified, grasped with pickups and entered sharply with Metzenbaum scissors, bladder flap was created digitally and bladder blade was reinserted. Uterus was incised in transverse fashion, incision was extended laterally with our appendage scissors, membranes were ruptured and clear fluid was obtained. Baby's buttocks were delivered, followed by legs and arms in flexion position and then head without difficulty. Mouth and nose were suctioned there was dried on the field he was vigorously crying and moving. The cord was clamped times and cut at 1 minute delay and then the was handed off to the pediatric team. Then the placenta was delivered manually as intact and complete. Uterus was externalized and cleared of all clots and debris's. Uterine incision was repaired with 0 Vicryl in a running locked fashion, second umbricating layer was placed with the same suture in running locked fashion. Excellent hemostasis achieved. Cul-de-sac and the pelvis was irrigated with warm normal saline and suctioned. Incision was checked of hemostatic again. Uterus was returned to the abdomen, parietal peritoneum was reapproximated with 3-0 Vicryl in a running fashion and the muscles were reapproximated in the same suture in a running fashion. All of the fascia and rectus muscles were hemostatic. Rectus fascia was reapproximated with 0 Vicryl in continuous fashion. Subcuticular fat tissue was brought together with 2-0 Vicryl in a running fashion, skin was closed with 4-0 Monocryl in a subcuticular cuticular fashion. The incision was covered with karlos dressing. The mom and baby tolerated procedure well. Sponge needle instrument count was correct x3. No complications happened, I was present during whole procedure. My student assistant was needed for retraction, hemostasis and aid during delivery of infant I attest to the content of the Intraoperative Record and any orders documented therein. Any exceptions are noted below.
--- NOTE | 2024-01-11 09:36 | Anesthesiology Progress Note ---
Date of Service January 11, 2024 Anesthesia Post Procedure Vital Signs Vital Signs: Temp Pulse Resp BP 01/11/24 09:27 67 129/61 01/11/24 07:10 92 H 144/82 H 01/11/24 07:07 16 01/11/24 07:07 16 01/11/24 06:20 96 H 138/89 01/11/24 06:04 105 H 139/94 01/11/24 05:51 37.2 C 18 Notes Mental Status: alert / awake / arousable Patient Amnestic to Procedure: Yes Nausea / Vomiting: adequately controlled Pain: adequately controlled Airway Patency, RR, SpO2: stable & adequate BP & HR: stable & adequate Hydration State: stable & adequate Neuraxial Anesthesia: was administered and sensory block is resolving Anesthetic Complications: no major complications apparent
[2024-01-11] MEDS: LACTATED RINGER'S 500 ML IV PRN (09:45)
[2024-01-11] MEDS: OXYTOCIN 20 UNITS/LR 1,002 ML IV SCH (10:20)
[2024-01-11] MEDS: KETOROLAC 30 MG/ML VIAL IV PRN (10:35)
[2024-01-11] MEDS: DROPERIDOL 5 MG/2 ML VIAL IV ONE (12:44)
[2024-01-11] MEDS: PROMETHAZINE HCL 6.25 MG in SODIUM CHLORIDE 0.9% 50 ML IV STA (13:00)
[2024-01-11] MEDS: SIMETHICONE 80 MG CHEW PO SCH (13:35)
--- OUTSIDE RECORDS SUMMARY | 2024-01-11 15:26 | External Medical Summary | Summary of Care ---
Author Name Unknown Organization [facility] Address [address] [place] [address] Phone [phone] Care Team Providers Care Cytotechnologist/Cytology Supervisor Name Role Phone Charlie Liriano DO Primary Care Provider Reason for Visit * Reason Comments Return Visit Encounter Details Date Type Department Care Team (Late st Contact Info) Description 01/04/2024 2:30 PM EST Office Visit Gynecology/Obstetric s [facility] [address] [facility] [place] [address] Connor Huff MD [address] [facility] [place] [address] Agustin, Non Stress Tests Ramy [address] [address] Health counseling*; Other obesity affecting , antepartum; Encounter for supervision of normal first in third trimester; History of epilepsy; Antepartum anemia complicating ; Abnormal ultrasonic finding on screening of mother; Preop testing Allergies Active Allergy Reactions Criticality Noted Date Comments Bee Venom 06/17/2022 Swelling, hot, hard where stung Lorazepam Other (Please comment) 02/24/2014 documented as of this encounter (statuses as of 01/04/2024) Medications Medication Sig Dispensed Refills Start Date End Date Status 27-0.8 MG Oral Tablet Take 1 Tablet by mouth daily at noon. 0 Active Iron-Vitamin C 65-125 MG Oral Tablet (Vitron C) Take 1 Tablet by mouth in the morning and 1 Tablet before bedtime. 60 Tablet 3 10/24/2023 Active Breast Pump Pump daily while breast feeding 1 Each 0 11/03/2023 Active documented as of this encounter (statuses as of 01/04/2024) Active Problems Problem Noted Date Diagnosed Date Abnormal ultrasonic finding on screening of mother 12/02/2023 Overview: Absent nasal bone; low risk Qnatal Antepartum anemia complicating 023 Overview: Hgb 11 at 27 wks, iron/vit c rx'd. History of epilepsy 07/18/2023 Overview: Diagnosed with epilepsy at age 4 Discontinued medications in 2008 Last seizure 2008 No longer follows with Neurology Last Assessment & Plan: CONSIDERATIONS: Explained to patient that more than 90% of women with epilepsy have a normal . Most women will have no alteration of their seizure pattern during , especially if medication noncompliance and sleep deprivation are minimized. Discussed that women with epilepsy have an increased risk for obstetrical complications including labor, delivery, , pre-eclampsia, , placental abruption, low weight infants, and lower infant scores, stillbirth, and maternal mortality. These risks can be minimized by preconception planning and careful management with anti-epileptic drugs during . Discussed that the overall rate of congenital abnormalities associated with maternal intake of AEDs is 6-8%, but there is no clear data indicating that any drug is without or has less risk in . It is therefore suggested that patients planning should be managed on the most effective anti-epileptic medications for their seizures. Monotherapy and the lowest possible drug dose may limit risk of teratogenicity. Discussed that we do not recommend making changes to anti-epileptic medication regimens for the purpose of reducing teratogenic risk in established . RECOMMENDATIONS: Recommend patient be monitored and medication managed/titrated by neurology throughout and period. Recommend MSAFP at 15-18 weeks Recommend Maternal Medicine ultrasound for anatomy at 19-20 weeks gestation. Recommend echo be done at approximately 24 weeks for patients with current idiopathic epilepsy (currently on medications or seizure within past 3 years). Health counseling 06/09/2023 Overview: Problem Action Taken Date entered Entered by Date resolved Need for food assistance referred to [facility] and local food [place] 06/09/2023 Yeni Barrera RN 06/09/2023 Problem Action Taken Date entered Entered by Date resolved 1st trimester education Education given 06/09/2023 Yeni Barrera RN 06/09/2023 Problem Action Taken Date entered Entered by Date resolved Current needs or questions Patient denies having any current needs or questions 08/26/2023 Kathy Vergara RN 08/26/2023 Problem Action Taken Date entered Entered by Date resolved Current needs or questions Pt undecided on control. Patient denies having any current needs or questions 09/23/2023 Kathy Vergara RN 09/23/2023 Problem Action Taken Date entered Entered by Date resolved Current needs or questions Patient denies having any current needs or questions 10/21/2023 Yeni Barrera RN 10/21/2023 Problem Action Taken Date entered Entered by Date resolved Current needs or questions Patient denies having any current needs or questions 12/02/2023 Yeni Barrera RN 12/02/2023 Problem Action Taken Date entered Entered by Date resolved Current needs or questions Patient denies having any current needs or questions 12/14/2023 Yeni Barrera RN 12/14/2023 Problem Action Taken Date entered Entered by Date resolved Current needs or questions Patient denies having any current needs or questions 12/28/2023 Kathy Vergara RN 12/28/2023 Problem Action Taken Date entered Entered by Date resolved Current needs or questions Patient denies having any current needs or questions 01/04/2024 Yeni Barrera RN 01/04/2024 Obesity affecting , antepartum 06/09/20 23 Overview: Pre gravid BMI: 38.0 Class 2 obesity Lab Results Component Value Date/Time 50-G GESTATIONAL GLUCOSE, 1 HOUR - [facility] 126 07/11/2023 04:06 PM HEMOGLOBIN A1C - [facility] 5.0 04/13/2022 12:36 PM Baseline Preeclampsia Labs Lab Results Component Value Date/Time PLATELET AUTO - [facility] 291 06/09/2023 03:35 PM Last Assessment & Plan: I reviewed the ultrasound. The overall estimated weight is consistent with the 41st percentile for the gestational age and the anatomy that was visualized appears unremarkable. The amniotic fluid volume is normal 15 cm. , normal first 06/09/2023 Left breast lump 05/26/2022 Sialoadenitis, unspecified 04/13/2022 Estimated Date of Delivery Comme nts Yes 01/17/2024 Based on last me nstrual period of 04/12/2023 (Exact Date) documented as of this encounter (statuses as of 01/04/2024) Resolved Problems Problem Noted Date Diagnosed Date Resolved Date Supervision of high risk pre gnancy in second trimester 07/18/2023 09/23/2023 Obesity, Class I, BMI 30.0-3 4.9 (see actual BMI) 08/24/2021 07/17/2023 Laceration of thumb without foreign body with damage to nail 11/06/2018 02/20/2019 Well adult exam 10/11/2018 10/23/2018 Paronychia of great toe, right 03/12/2015 10/23/2018 Alcoholism in family 02/06/2013 021 Family health problem 02/06/20132017 Suicidal ideation 02/06/2013 10/23/2018 Adjustment disorder with depressed mood 02/06/2013 10/23/2018 Impetigo 08/03/2011 02/06/2013 Dermatitis 08/03/2011 02/06/2013 Overweight, pediatric, BMI 8 5.0-94.9 percentile for age 0302/04/2011 10/23/2018 Varicella without complication 02/04/2011 10/23/2018 Attention deficit disorder w ithout hyperactivity 01/08/2011 08/24/2021 Convulsions 12/25/2007 08/24/2021 ADVANCE DIRECTIVE INFORMATION 08/14/2007 02/04/2011 Overview: Not applicable (under age of 18) documented as of this encounter (statuses as of 01/04/2024) Immunizations Name Administration Dates Next Due HEP A - Hepatitis A (Adult > 18 yrs) 10/25/2017 HPV Vaccine, 9-Valent 07/01/2016 Hepatitis B, 0-19 yrs 1998 Meningococcal Conjugate Vaccine (Menactra/Menveo ) 07/01/2016,12/24/2010 PPD 10/20/2018,10/11/2018 RSV Vac., Bivalent, Perfusion F, Pf,0.5 Ml (Abry svo) 12/14/2023 Seasonal Influenza, PF, 6 M & above, IM , (FluLaval or Fluzone) 10/11/2018 TDAP (age 10 and older)(Boostrix) 10/21/2023,03/2021 TDAP (age 11 and older)(Adacel) 12/24/2010 documented as of this encounter Social History Tobacco Use Types Packs/Day Years Used Date Smoking Tobacco: Never Smokeless Tobacco: Never Alcohol Use Standard Drinks/Week Comments No 0 (1 standard drink = 0.6 oz pur e alcohol) PHQ-2 Answer Date Recorded PHQ Adult Total Score 0 05/26/2022 Hunger Vital Sign Answer Date Recorded Within the past 12 months, y ou worried that your food would run out before you got the money to buy more. Never true 06/09/20 Within the past 12 months, t he food you bought just didn't last and you didn't have money to get more. Never true 06/09/2023 [place] Depression Scale Answer Date Recorded [place] Depression Scale Total 5 12/02/2023 The thought of harming myself has occurred to me . Never 12/02/2023 Estimated Date of Delivery Comme nts Yes 01/17/2024 Based on last me nstrual period of 04/12/2023 (Exact Date) Sex and Gender Information Value Date Recorded Sex Assigned at Female 02/20/2019 10:07 AM EDT Gender Identity Female 02/20/2019 10:07 AM EDT Sexual Orientation Straight 02/20/2019 10 :07 AM EDT Job Start Date Occupation Industry Not on file Not on file Not on file documented as of this encounter Last Filed Vital Signs Vital Sign Reading Time Taken Comments Blood Pressure - - Pulse - - Temperature - - Respiratory Rate - - Oxygen Saturation - - Inhaled Oxygen Concentration - - Weight 112.5 kg (248 lb) 01/04/2024 2:35 PM EST Height 170.2 cm (5' 7") 01/04/2024 2:35 PM EST Body Mass Index 38.84 01/04/2024 2:35 PM EST documented in this encounter Progress Notes * Connor Huff MD - 01/04/2024 3:19 PM EST Pt here for preop History and physical examination done Consnet obtained documented in this encounter H&P Notes * Connor Huff MD - 01/04/2024 3:12 PM EST Patient Name: Leigh Polanco Patient [facility] [address] [facility] [address] Appt line [phone] Leigh Polanco is a 23 year old year old year old at 38w1d Patient is .Estimated Date of Delivery: 01/17/24 Beech presentation Pt here for preop OB History Para Term AB Living 1 0 0 0 0 0 SAB IAB Ectopic Multiple Live Births 0 0 0 0 0 # Outcome Date GA Lbr Nolan/2nd Weight Sex Delivery Anes PTL Lv 1 Current Obstetric Comments 2023: FOB #1: Esvin, age 22, healthy, no other children Date Labor Sex Delivery Anesth Del Comments GA Length Weight Type Site Callisthenics Instructor History: Menstrual Index: / / days. Denies h/o STDs and abnormal Paps. Her past medical/surgical histories and current medications are recorded in the electronic record. Past Surgical History: Procedure Laterality Date ANESTHESIA FOR KNEE AREA SURGERY Right 2020 I and D of R knee wound BUNION CORRECTED WITH DOUBLE OSTEOTOMY 2012 Family History Problem Relation Age of Onset Breast Cancer Mother in her 50's Heart attack Grandmother (Maternal) Stroke Grandfather (Maternal) History Social History Socioeconomic History Marital status: Single Spouse name: Not on file Number of children: Not on file Years of education: Not on file Highest education level: Not on file Occupational History Occupation: EMT Tobacco Use Smoking status: Never Smokeless tobacco: Never Substance and Sexual Activity Alcohol use: No Drug use: No Sexual activity: Yes Partners: Male control/protection: Condom Other Topics Concern Not on file Social History Narrative Not on file Social Determinants of Health Financial Resource Strain: Not on file Food Insecurity: No Food Insecurity (06/09/2023) Hunger Vital Sign Worried About Running Out of Food in the Last Year: Never true Ran Out of Food in the Last Year: Never true Transportation Needs: Not on file Physical Activity: Not on file Stress: Not on file Social Connections: Not on file Intimate Partner Violence: Not on file Housing Stability: Not on file @[employer]@ Physical Exam: Ht 1.702 m (5' 7") | Wt 112.5 kg (248 lb) | LMP 04/12/2023 (Exact Date) | BMI 38.84 kg/m | BSA 2.31 m CV: S1, S2. Regular rate and Rhythm Lungs: Clear to auscultation bilaterally. Abdomen: Soft with a gravid uterus and no palpable contractions. Fundal Height: 38 cms heart rate: 140/min Extremities: Soft non tender calves bilaterally. A/P: 23 year old year old We have discussed the risk alternatives and complications of surgery including more surgery to correct complication,risk of anesthesia,infection,damage to internal organs and . We have also discussed the possibility that pt's present situation may not change. Pt is aware and wishes to proceed to surgery. Consent is signed Connor Huff MD 01/04/2024 3:12 PM documented in this encounter Nursing Notes * Yeni Barrera RN - 01/04/2024 3:36 PM EST Patient seen by [facility] Blasting Contract Man. Patient denies any questions or concerns. documented in this encounter Plan of Treatment Upcoming Encounters Date Type Department Care Team (Late st Contact Info) Description 01/20/2024 11:00 AM EST Office Visit Gynecology/Obstetrics [facility] [address] [place] [address] Chantal Shannon CRNP [address] [place] [address] Health Maintenance Due Date Last Done Comments COVID-19 Vaccine (#1) 1998 GARDASIL-HPV IMMUNIZATION SERIES (2 - 3-dose series) 07/29/2016 07/01/2016 Depression Screening 05/26/2023 05/26/2022 Influenza Vaccine (FLU shot) (#1) 2023 10/11/2018 Pap Smear 06/09/2026 06/09/2023, 08/16/2019 DTaP,Tdap,and Td Vaccines (9 - Td or Tdap) 10/21/2033 10/21/2023, 04/25/2021, 12/24/2010, Additional history exists Hepatitis B Completed 02/13/1999, 06/21, 1998 MENINGOCOCCAL (MENACTRA/MENVEO) Completed 07/01/2016, 07/01/2016, 12/24/2010, Additional history exists Gonorrhea / Chlamydia Screen Discontinued 06/09/2023, 08/16/2019, 10/11/2018, Additional history exists Pneumococcal Vaccine: Pediatrics (0 to 5 Years) and At-Risk Patients (6 to 64 Years) Aged Out No longer eligible based on patient's age to complete this topic documented as of this encounter Medical Devices Not on filedocumented as of this encounter Visit Diagnoses Diagnosis Health counseling- Primary Other specified counseling Other obesity affecting , antepartum Encounter for supervision of normal first in third trimester Supervision of normal first History of epilepsy Personal history of other disorders of nervous system and sense organs Antepartum anemia complicating Anemia, antepartum Abnormal ultrasonic finding on screening of mother Abnormal findings on screening Preop testing Preoperative examination, unspecified documented in this encounter Care Teams Cytotechnologist/Cytology Supervisor Relationship Specialty Start Date End Date Charlie Liriano DO [address] [place] [address] PCP - General Family Medicine 10/30/18 documented as of this encounter
--- OUTSIDE RECORDS SUMMARY | 2024-01-11 15:26 | External Medical Summary | Summary of Care ---
Author Name Unknown Organization [facility] Address [address] [place] [address] Phone [phone] Care Team Providers Care Machinist Apprentice Name Role Phone Charlie Liriano DO Primary Care Provider Reason for Visit * Reason Comments Return Visit Encounter Details Date Type Department Care Team (Late st Contact Info) Description 12/28/2023 1:30 PM EST Office Visit Gynecology/Obstetric s [facility] [address] [place] [facility] [address] Chantal Shannon CRNP [address] [place] [address] Agustin, Non Stress Tests Ramy [address] [place] [address] Encounter for supervision of normal first in third trimester*; Health counseling; Obesity affecting , antepartum, unspecified obesity type; History of epilepsy; Antepartum anemia complicating ; Abnormal ultrasonic finding on screening of mother Allergies Active Allergy Reactions Criticality Noted Date Comments Bee Venom 06/17/2022 Swelling, hot, hard where stung Lorazepam Other (Please comment) 02/24/2014 documented as of this encounter (statuses as of 12/28/2023) Medications Medication Sig Dispensed Refills Start Date [...] as of this encounter (statuses as of 12/28/2023) Active Problems Problem Noted Date Diagnosed Date [...] placental abruption, low weight infants, and lower scores, stillbirth, and maternal mortality. These risks [...] resolved Need for food assistance referred to [facility] and local food [place] 06/09/2023 Yeni Barrera [...] or questions 12/28/2023 Kathy Vergara RN 12/28/2023 Obesity affecting , antepartum 06/09/20 23 Overview: [...] as of this encounter (statuses as of 12/28/2023) Resolved Problems Problem Noted Date Diagnosed Date [...] as of this encounter (statuses as of 12/28/2023) Immunizations Name Administration Dates Next Due HEP [...] money to get more. Never true 06/09/2023 [place] Depression Scale Answer Date Recorded [place] Depression Scale Total 5 12/02/2023 The thought [...] Sign Reading Time Taken Comments Blood Pressure 122/70 12/28/2023 1:38 PM EST Pulse - - Temperature - - Respiratory Rate - - Oxygen Saturation - - Inhaled Oxygen Concentration - - Weight 112 kg (247 lb) 12/28/2023 1:38 PM EST Height 170.2 cm (5' 7") 12/28/2023 1:38 PM EST Body Mass Index 38.69 12/28/2023 1:38 PM EST documented in this encounter Progress Notes * Chantal Shannon CRNP - 12/28/2023 2:12 PM EST 37w1d MFM appt yesterday confirming breech presentation. Agreeable to schedule primary c/s, Ale to coordinate. No other concerns. Baby is active. Some irregular contractions, no bleeding or LOF. ASSESSMENT assessment with Non-stress Test completed on 12/28/2023 at 37.1weeks gestation for indication of obesity heart baseline: 150 bpm Variability: Moderate Decelerations: absent Accelerations: present Contractions: None NST start time: 1333 NST stop time: 1409 NST strip reviewed, interpreted, and approved by OB provider, BERNA Ayala . NST strip stored in clinic storage file documented in this encounter Nursing Notes * Kathy Vergara RN - 12/28/2023 1:48 PM EST Patient seen by [facility] Manager. documented in this encounter Plan of Treatment Upcoming Encounters Date Type Department Care Team (Late st Contact Info) Description 01/04/2024 2:30 PM EST Office Visit Gynecology/Obstetrics Anand Velez [address] [place] [address] Connor Huff MD [address] [place] [address] Agustin, Non Stress Tests Ramy [address] [place] [address] 01/20/2024 11:00 AM EST Office Visit Gynecology/Obstetrics Anand Velez [address] [place] [address] Chantal Shannon CRNP [address] [place] [address] Health Maintenance Due Date Last Done Comments [...] as of this encounter Visit Diagnoses Diagnosis Encounter for supervision of normal first in third trimester- Primary Supervision of normal first Health counseling Other specified counseling Obesity affecting , antepartum, unspecified obesity type History of epilepsy Personal history of other disorders of nervous system and sense organs Antepartum anemia complicating Anemia, antepartum Abnormal ultrasonic finding on screening of mother Abnormal findings on screening documented in this encounter Care Teams Machinist Apprentice Relationship Specialty Start Date End Date Charlie Liriano DO [address] [place] [address] [address] [place] [address] PCP - General Family Medicine 10/30/18 documented as of this encounter
--- OUTSIDE RECORDS SUMMARY | 2024-01-11 15:27 | External Medical Summary | Summary of Care ---
Author Name Unknown Organization [facility] Address [address] [facility] [place] [address] Phone [phone] Care Team Providers Care Technologies Division Chair Name Role Phone Charlie Liriano DO Primary Care Provider Encounter Details Date Type Department Care Team (Late st Contact Info) Description 12/21/2023 Telephone [facility] [address] [place] [address] Amanda Welch MD [address] [place] [phone] Allergies Active Allergy Reactions Criticality Noted Date Comments Bee Venom 06/17/2022 Swelling, hot, hard where stung Lorazepam Other (Please comment) 02/24/2014 documented as of this encounter (statuses as of 12/23/2023) Medications Medication Sig Dispensed Refills Start Date [...] as of this encounter (statuses as of 12/23/2023) Active Problems Problem Noted Date Diagnosed Date [...] resolved Need for food assistance referred to [employer] and local food [place] 06/09/2023 Yeni Barrera [...] or questions 12/14/2023 Yeni Barrera RN 12/14/2023 Obesity affecting , antepartum 06/09/20 Overview: Pre gravid BMI: 38.0 Class 2 obesity Lab Results Component Value Date/Time 50-G GESTATIONAL GLUCOSE, 1 HOUR - [facility] 126 07/11/2023 04:06 PM HEMOGLOBIN A1C - [facility] 5.0 04/13/2022 12:36 PM Baseline Preeclampsia Labs Lab Results Component Value Date/Time PLATELET AUTO - [facility] 291 06/09/2023 03:35 PM Last Assessment & Plan: Known absent nasal bone. Low risk NIPT appreciated. , normal first 06/09/2023 Left breast lump 05/26/2022 Sialoadenitis, unspecified 04/13/2022 Estimated Date of Delivery Comme nts Yes 01/17/2024 Based on last me nstrual period of 04/12/2023 (Exact Date) documented as of this encounter (statuses as of 12/23/2023) Resolved Problems Problem Noted Date Diagnosed Date [...] as of this encounter (statuses as of 12/23/2023) Immunizations Name Administration Dates Next Due DTaP Dipth/Tet/Acell Pertussis (Infanrix), Peds 07/03/2003,07/15/1999,1998,08/25,1998 HEP A - Hepatitis A (Adult > 18 yrs) 10/25/2017 HEP A - Hepatitis A (Ped/Ado le, 2-18 Yrs) 07/03/2003 HPV Vaccine, 9-Valent 07/01/2016 Haemophilius B (HIB), unspecified 1998,1998,1998,06/25 Hepatitis B Vaccine 02/13/1999,1998 Hepatitis B, 0-19 yrs 1998 IPV - Polio Virus Vaccine (Inact) 1998,07/15/1999,1998,06/25 MMR - Measles/Mumps/Rubella Vaccine 07/03/2003,1 1998 Meningococcal Conjugate Vacc ine (Menactra/Menveo) 07/01/2016,12/24/2010 PPD 10/20/2018,10/11/2018,07/03/2003 RSV Vac., Bivalent, Perfusio n F, Pf,0.5 Ml (Abrysvo) 12/14/2023 Seasonal Influenza, PF, 6 M & [...] money to buy more. Never true 06/09/20 23 Within the past 12 months, t he food you bought just didn't last and you didn't have money to get more. Never true 06/09/2023 [place] Depression Scale Answer Date Recorded [place] Depression Scale Total 5 12/02/2023 The thought [...] on file documented as of this encounter Miscellaneous Notes * Telephone Encounter - Kathy Vergara RN - 12/23/2023 9:04 AM EST Call received from L&D. Pt evaluated there yesterday * Telephone Encounter - Kirsten Meier LPN - 12/22/2023 10:28 AM EST Pt is currently 36w2d with an Estimated Date of Delivery: 01/17/24 - Patient called stating she has not felt baby move yet today. She has not had breakfast. Advised to have breakfast and something cold to drink and do a kick count over the next hour and call back. * Telephone Encounter - Kathy Vergara RN - 12/21/2023 3:19 PM EST Pt has been having menstrual like cramping. She can not time these. To far apart. Started Tuesday.She admits to not being hydrated. Worse at end of day. + FM. No vaginal bleeding. Denies any ROM. Advised to push fluids She should call back if having more than 4-6 ctx in an hour or with any other changes. documented in this encounter Plan of Treatment Upcoming Encounters Date Type Department Care Team (Late st Contact Info) Description 12/27/2023 11:30 AM EST Office Visit Insulation Worker Furnace Installer OB Maternal Medicine [facility] Arian Pompa [address] [place] [address] Dr [address] [place] [address] Ang Gimenez MD [address] [place] [address] 12/27/2023 11:30 AM EST Imaging Maternal Medicine [facility] Arian Pompa [address] [place] [address] Dr [address] [facility] [address] 12/28/2023 1:30 PM EST Office Visit Gynecology/Obstetrics Anand Velez [address] [place] [address] Chantal Shannon CRNP [address] [place] [address] Ely Velez Stress Tests Ramy [address] [place] [address] 01/04/2024 2:30 PM EST Office Visit Gynecology/Obstetrics Anand Velez [address] [place] [address] Connor Huff MD [address] [place] [address] Ely Velez Stress Tests Ramy [address] [place] [address] 01/11/2024 10:00 AM EST Office Visit Gynecology/Obstetrics Anand Velez [address] [place] [address] Chantal Shannon CRNP [address] [place] [address] Ely Velez Stress Tests Ramy [address] [place] [address] 01/16/2024 1:45 PM EST Office Visit Gynecology/Obstetrics [facility] [address] [place] [address] Chantal Shannon CRNP [address] [place] [address] Ely Velez Stress Tests Ramy [address] [place] [address] Health Maintenance Due Date Last Done Comments [...] Not on filedocumented as of this encounter Care Teams Technologies Division Chair Relationship Specialty Start Date End Date Charlie Liriano DO [address] [place] [address] PCP - General Family Medicine 10/30/18 documented as of this encounter
--- OUTSIDE RECORDS SUMMARY | 2024-01-11 15:27 | External Medical Summary | Summary of Care ---
Author Name Unknown Organization [facility] Address [address] [place] [address] Phone [phone] Care Team Providers Care Thread Milling Machine Set Up Operator Name Role Phone Charlie Liriano Primary Care Provider Encounter Details Date Type Department Care Team (Late st Contact Info) Description 12/27/2023 11:30 AM EST Office Visit Radial Drill Press Operator For Plastic OB Maternal Medicine [facility] Arian Pompa [address] [place] [address] [address] [place] [address] Ang Gimenez MD [address] [place] [address] Obesity affecting , antepartum, unspecified obesity type* Allergies Active Allergy Reactions Criticality Noted Date Comments Bee Venom 06/17/2022 Swelling, hot, hard where stung Lorazepam Other (Please comment) 02/24/2014 documented as of this encounter (statuses as of 12/27/2023) Medications Medication Sig Dispensed Refills Start Date [...] as of this encounter (statuses as of 12/27/2023) Active Problems Problem Noted Date Diagnosed Date [...] resolved Need for food assistance referred to [employer] and local food [employer] 06/09/2023 Yeni Barrera RN 06/09/2023 Problem Action [...] as of this encounter (statuses as of 12/27/2023) Resolved Problems Problem Noted Date Diagnosed Date [...] as of this encounter (statuses as of 12/27/2023) Immunizations Name Administration Dates Next Due HEP [...] money to get more. Never true 06/09/2023 [place] Depression Scale Answer Date Recorded [place] Depression Scale Total 5 12/02/2023 The thought [...] on file documented as of this encounter Progress Notes * Ang Gimenez MD - 12/27/2023 11:42 AM EST MATERNAL MEDICINE VISIT Leigh Polanco is at 37w0d who presents to [facility] for an ultrasound and follow-up of her high risk . The patient is currently 37 weeks and 0 days gestation with class 2 obesity. She comes in for an evaluation of growth. She is being seen today by Maternal- Medicine for the following reasons: Problem List Items Addressed This Visit Obesity affecting , antepartum - Primary I reviewed the ultrasound. The overall estimated weight is consistent with the 41st percentile for the gestational age and the anatomy that was visualized appears unremarkable. The amniotic fluid volume is normal 15 cm. RECOMMENDATIONS: Recommend surveillance starting at 37 weeks secondary to class II obesity. Thank you for allowing us to participate in the care of this patient. Please call with any questions. Ang Gimenez MD 12/27/2023 11:42 AM documented in this encounter Miscellaneous Notes * Assessment & Plan Note - Ang Gimenez MD - 12/27/2023 12:20 PM EST Associated Problem(s): Obesity affecting , antepartum I reviewed the ultrasound. The overall estimated weight is consistent with the 41st percentile for the gestational age and the anatomy that was visualized appears unremarkable. The amniotic fluid volume is normal 15 cm. documented in this encounter Plan of Treatment Upcoming Encounters Date Type Department Care Team (Late st Contact Info) Description 12/28/2023 1:30 PM EST Office Visit Gynecology/Obstetrics [facility] [address] [place] [address] Chantal Shannon CRNP [address] [place] [address] Velez, Non Stress Tests Ramy [address] [place] [address] 01/04/2024 2:30 PM EST Office Visit Gynecology/Obstetrics [facility] [address] [place] [address] Connor Huff MD [address] [place] [address] Velez, Non Stress Tests Ramy [address] [place] [address] 01/11/2024 10:00 AM EST Office Visit Gynecology/Obstetrics [facility] [address] [place] [address] Chantal Shannon CRNP [address] [place] [address] Velez, Non Stress Tests Ramy [address] [place] [address] 01/16/2024 1:45 PM EST Office Visit Gynecology/Obstetrics [facility] [address] [place] [address] Chantal Shannon CRNP [address] [place] [address] Velez, Non Stress Tests Ramy [address] [place] [address] Health Maintenance Due Date Last Done Comments [...] as of this encounter Visit Diagnoses Diagnosis Obesity affecting , antepartum, unspecified obesity type- Primary documented in this encounter Care Teams Thread Milling Machine Set Up Operator Relationship Specialty Start Date End Date Charlie Liriano DO [address] [place] [address] PCP - General Family Medicine 10/30/18 documented as of this encounter
--- OUTSIDE RECORDS SUMMARY | 2024-01-11 15:27 | External Medical Summary | Summary of Care ---
Author Name Unknown Organization [facility] Address [address] [place] [address] Phone [phone] Care Team Providers Care Pumper Gauger Apprentice Name Role Phone Charlie Liriano Primary Care Provider Encounter Details Date Type Department Care Team (Late st Contact Info) Description 12/27/2023 11:30 AM EST Office Visit Distribution Operations Manager OB Maternal Medicine [facility] Arian Pompa [address] [place] [address] [address] [place] [address] Ang Gimenez MD [address] [place] [address] Obesity affecting , antepartum, unspecified [...] resolved Need for food assistance referred to [employer] and local food [employer] 06/09/2023 Yeni Barrera RN 06/09/2023 Problem Action [...] money to get more. Never true 06/09/2023 [place] Depression Scale Answer Date Recorded [place] Depression Scale Total 5 12/02/2023 The thought [...] Polanco is at 37w0d who presents to [facility] for an ultrasound and follow-up of her [...] Velez [address] [place] [address] Chantal Shannon CRNP [address] [place] [address] Velez, Non Stress Tests Ramy [address] [place] [address] 01/04/2024 2:30 PM EST Office Visit Gynecology/Obstetrics [facility] [address] [place] [address] Connor Huff MD [address] [place] [address] Velez, Non Stress Tests Ramy [address] [place] [address] 01/11/2024 10:00 AM EST Office Visit Gynecology/Obstetrics [facility] [address] [place] [address] Chantal Shannon CRNP [address] [place] [address] Velez, Non Stress Tests Ramy [address] [place] [address] 01/16/2024 1:45 PM EST Office Visit Gynecology/Obstetrics [facility] [address] [place] [address] Chantal Shannon CRNP [address] [place] [address] Velez, Non Stress Tests Ramy [address] [place] [address] Health Maintenance Due Date Last Done Comments [...] Primary documented in this encounter Care Teams Pumper Gauger Apprentice Relationship Specialty Start Date End Date Charlie Liriano DO [address] [place] [address] PCP - General Family Medicine 10/30/18 documented as of this encounter
--- OUTSIDE RECORDS SUMMARY | 2024-01-11 15:27 | External Medical Summary | Summary of Care ---
Author Name Unknown Organization [facility] Address [address] [facility] [place] [address] Phone [phone] Care Team Providers Care Knife Machine Operator Name Role Phone Charlie Liriano Primary Care Provider Encounter Details Date Type Department Care Team (Late st Contact Info) Description 12/22/2023 Result Scan Unspecified Department Amanda Welch MD [address] [place] [address] <No scans attached> Allergies Active Allergy Reactions Criticality Noted Date Comments Bee Venom 06/17/2022 Swelling, hot, hard where stung Lorazepam Other (Please comment) 02/24/2014 documented as of this encounter (statuses as of 12/26/2023) Medications Medication Sig Dispensed Refills Start Date [...] as of this encounter (statuses as of 12/26/2023) Active Problems Problem Noted Date Diagnosed Date Abnormal ultrasonic finding on screening of mother 12/02/2023 Overview: Absent nasal bone; low risk Qnatal Antepartum anemia complicating 023 Overview: Hgb 11 at 27 wks, iron/vit c rx'd. History of epilepsy 07/18/2023 Overview: Diagnosed with epilepsy at age 4 Discontinued medications in 2008 Last seizure 2009 No longer follows with Neurology Last Assessment [...] resolved Need for food assistance referred to [employer] and local [employer] 06/09/2023 Yeni Barrera RN 06/09/2023 Problem Action Taken Date entered Entered by Date resolved 1st trimester education Education given 06/09/2023 Yeni Barrera, SHANICE 06/09/2023 Problem Action Taken Date entered Entered [...] as of this encounter (statuses as of 12/26/2023) Resolved Problems Problem Noted Date Diagnosed Date [...] as of this encounter (statuses as of 12/26/2023) Immunizations Name Administration Dates Next Due HEP [...] money to get more. Never true 06/09/2023 [place] Depression Scale Answer Date Recorded [place] Depression Scale Total 5 12/02/2023 The thought [...] on file documented as of this encounter Plan of Treatment Upcoming Encounters Date Type Department Care Team (Late st Contact Info) Description 12/27/2023 11:30 AM EST Office Visit Chancellor OB Maternal Medicine [facility] Arian Pompa [address] [place] [address] Dr [address] [place] [address] Ang [facility]imenez MD [address] [facility] [address] 12/27/2023 11:30 AM EST Imaging Maternal Medicine [facility] Arian Pompa [address] [place] [address] Dr [address] [facility] [address] 12/28/2023 1:30 PM EST Office [facility] [address] [facility] [place] [address] Chantal Shannon CRNP [address] [place] [address] Ely Velez Stress Tests [facility] [address] [place] [address] 01/04/2024 2:30 PM EST Office [facility] [address] [place] [address] Connor Huff MD [address] [place] [address] Agustin Non Stress Tests Ramy [address] [place] [address] 01/11/2024 10:00 AM EST Office Visit Gynecology/Obstetrics Anand Velez [address] [place] [address] Chantal Shannon CRNP [address] [place] [address] Agustin Non Stress Tests Ramy [address] [place] [address] 01/16/2024 1:45 PM EST Office Visit Gynecology/Obstetrics Anand Velez [address] [place] [address] Chantal Shannon CRNP [address] [place] [address] Ely Velez Stress Tests Ramy [address] [place] [address] Health Maintenance Due Date Last Done Comments [...] Not on filedocumented as of this encounter Procedures Procedure Name Priority Date/Time Associated Diagnosis Comments OUTSIDE LAB RESULTS 12/22/2023 documented in this encounter Results * OUTSIDE LAB RESULTS (12/22/2023) 12/22/2023 Amanda Roberson MD LABORATORY documented in this encounter Care Teams Knife Machine Operator Relationship Specialty Start Date End Date Charlie Liriano DO [address] [place] [address] PCP - General Family Medicine 10/30/18 documented as of this encounter
--- OUTSIDE RECORDS SUMMARY | 2024-01-11 15:27 | External Medical Summary | Summary of Care ---
Author Name Unknown Organization [facility] Address [address] [facility] [place] [address] Phone [phone] Care Team Providers Care Wire Sawyer Name Role Phone Charlie Liriano DO Primary Care Provider Reason for Visit * Reason Onset Date Comments Test Results 12/28/2023 Encounter Details Date Type Department Care Team (Late st Contact Info) Description 12/28/2023 Telephone Gynecology/Obstetrics Anand [facility] [address] [place] [address] Amanda Welch MD [address] [place] [address] Test Results Allergies Active Allergy Reactions Criticality Noted Date [...] resolved Need for food assistance referred to [employer] and local [employer] 06/09/2023 Yeni Barrera RN 06/09/2023 Problem Action [...] money to get more. Never true 06/09/2023 [place] Depression Scale Answer Date Recorded [place] Depression Scale Total 5 12/02/2023 The thought [...] encounter Miscellaneous Notes * Telephone Encounter - Aleta Ann LPN - 12/28/2023 9:50 AM EST Sent MyG. * Telephone Encounter - Yeni Barrera RN - 12/28/2023 9:43 AM EST ----- Message from Amanda Roberson MD sent at 12/28/2023 9:35 AM EST ----- Please let her know her GBS culture was negative Done at [facility] Thank you documented in this encounter Plan of Treatment Upcoming Encounters Date Type Department Care Team (Late st Contact Info) Description 12/28/2023 1:30 PM EST Office Visit Gynecology/Obstetrics Anand Velez [address] [place] [address] Chantal Shannon CRNP [address] [place] [address] Agustin Non Stress Tests Ramy [address] [place] [address] 01/04/2024 2:30 PM EST Office Visit Gynecology/Obstetrics Anand Velez [address] [place] [address] Connor Huff MD [address] [place] [address] Agustin Non Stress Tests Ramy [address] [place] [address] 01/11/2024 10:00 AM EST Office Visit Gynecology/Obstetrics Anand Velez [address] [place] [address] Chantal Shannon CRNP [address] [place] [address] Agustin Non Stress Tests Ramy [address] [place] [address] 01/16/2024 1:45 PM EST Office Visit Gynecology/Obstetrics Anand Velez [address] [place] [address] Chantal Shannon CRNP [address] [place] [address] Agustin Non Stress Tests Ramy [address] [place] [address] Health Maintenance Due Date Last Done Comments [...] filedocumented as of this encounter Care Teams Wire Sawyer Relationship Specialty Start Date End Date Charlie Liriano DO [address] [place] [address] PCP - General Family Medicine 10/30/18 documented as of this encounter
--- OUTSIDE RECORDS SUMMARY | 2024-01-11 15:27 | External Medical Summary | Summary of Care ---
Author Name Unknown Organization [facility] Address [address] [facility] [place] [address] Phone [phone] Care Team Providers Care Brewer Helper Name Role Phone Charlie Liriano DO Primary Care Provider Encounter Details Date Type Department Care Team (Late st Contact Info) Description 12/21/2023 Telephone [facility] [address] [place] [address] Amanda Welch MD [address] [place] [id number] Allergies Active Allergy Reactions Criticality Noted Date Comments Bee Venom 06/17/2022 Swelling, hot, hard where stung Lorazepam Other (Please comment) 02/24/2014 documented as of this encounter (statuses as of 12/22/2023) Medications Medication Sig Dispensed Refills Start Date [...] as of this encounter (statuses as of 12/22/2023) Active Problems Problem Noted Date Diagnosed Date [...] resolved Need for food assistance referred to [employer] and local food [place] 06/09/2023 Yeni Barrera [...] as of this encounter (statuses as of 12/22/2023) Resolved Problems Problem Noted Date Diagnosed Date [...] as of this encounter (statuses as of 12/22/2023) Immunizations Name Administration Dates Next Due DTaP [...] money to get more. Never true 06/09/2023 [place] Depression Scale Answer Date Recorded [place] Depression Scale Total 5 12/02/2023 The thought [...] encounter Miscellaneous Notes * Telephone Encounter - Kirsten Meier LPN [...] Description 12/27/2023 11:30 AM EST Office Visit Sound Effects Manager OB Maternal Medicine [facility] Arian Pompa [address] [place] [address] [address] [place] [address] Ang Gimenez MD [address] [place] [address] 12/27/2023 11:30 AM EST Imaging Maternal Medicine [facility] Arian Pompa [address] [place] [address] [address] [place] [address] 12/28/2023 1:30 PM EST Office Visit Gynecology/Obstetrics Anand Arguetas [address] [facility] [place] [address] Chantal Shannon CRNP [address] [place] [address] Agustin, Non Stress Tests [facility] [address] [place] [address] 01/04/2024 2:30 PM EST Office [facility] [address] [place] [address] Connor Huff MD [address] [place] [address] Agustin, Non Stress Tests Ramy [address] [place] [address] 01/11/2024 10:00 AM EST Office Visit Gynecology/Obstetrics Anand Velez [address] [place] [address] Chantal Shannon CRNP [address] [place] [address] Ely Velez Stress Tests Ramy [address] [place] [address] 01/16/2024 1:45 PM EST Office Visit Gynecology/Obstetrics Anand Velez [address] [place] [address] Chantal Shannon CRNP [address] [place] [address] Ely Velez Stress Tests Ramy [address] [place] [address] Health Maintenance Due Date Last Done Comments [...] filedocumented as of this encounter Care Teams Brewer Helper Relationship Specialty Start Date End Date Charlie Liriano DO [address] [place] [address] PCP - General Family Medicine 10/30/18 documented as of this encounter
[2024-01-11] MEDS ORDERED: LACTATED RINGER'S 1,000 ML IV SCH (17:30)
[2024-01-11] MEDS: LACTATED RINGER'S 1,000 ML IV ONE (18:34)
[2024-01-11] MEDS: DOCUSATE SODIUM 100 MG CAP PO SCH (20:11)
[2024-01-11] MEDS: ONDANSETRON INJ 2 MG/ML 2 ML VIAL IV PRN (20:12)
[2024-01-12] MEDS ORDERED: PROMETHAZINE HCL 25 MG in SODIUM CHLORIDE 0.9% 50 ML IV PRN (02:28)
[2024-01-12] MEDS ORDERED: diphenhydrAMINE 50 MG/ML VIAL IV PRN (02:28)
[2024-01-12] MEDS ORDERED: ONDANSETRON INJ 2 MG/ML 2 ML VIAL IV PRN (02:28)
[2024-01-12] MEDS ORDERED: KETOROLAC 30 MG/ML VIAL IV PRN (02:28)
[2024-01-12] MEDS ORDERED: diphenhydrAMINE Capsule 25 MG CAP PO PRN (02:28)
[2024-01-12] MEDS ORDERED: MEPERIDINE HCL 50 MG/ML CARP IV PRN (02:28)
[2024-01-12] MEDS: oxyCODONE/ACETAMINOPHEN 5mg/325mg TAB PO PRN (02:44)
[2024-01-12] MEDS: IBUPROFEN 600 MG TAB PO PRN (02:44)
[2024-01-12 06:56] LABS: Basophils # (auto) 0.03 K/uL (0.00-0.20); Basophils % (auto) 0.2 %; Eosinophils # (auto) 0.07 K/uL (0.00-0.50); Eosinophils % (auto) 0.6 %; Hematocrit (blood only) 32.4 % (37.0-47.0); Hemoglobin 10.6 g/dl (12.0-16.0); Immature Granulocytes # (auto) 0.05 K/uL (0.01-0.20); Immature Granulocytes % (auto) 0.4 %; Lymphocytes # (auto) 1.31 K/uL (1.20-3.40); Lymphocytes % (auto) 10.5 %; Mean Corpuscular Hgb Conc 32.7 g/dL (32.0-36.0); Mean Corpuscular Volume 85.5 fL (80.0-100.0); Mean Platelet Volume 11.6 fL (9.4-12.4); Monocytes % (auto) 5.6 %; Neutrophils # (auto) 10.37 K/uL (1.40-6.50); Neutrophils % (auto) 82.7 %; Platelet Count 195 K/uL (130-400); RDW Coefficient of Variation 14.7 % (11.5-14.5); RDW Standard Deviation 46.1 fL (36.4-46.3); Red Blood Count 3.79 M/uL (4.20-5.40); White Blood Count 12.53 K/ul (4.8-10.8)
[2024-01-12] MEDS: PRENATAL VITAMIN 1 TAB PO SCH (09:20)
[2024-01-12] MEDS: FERROUS SULFATE 325 MG TAB PO SCH (09:21)
--- NOTE | 2024-01-12 11:44 | Obstetrical Progress Note ---
Date of Service January 12, 2024 Subjective Ambulation: ambulating normally Voiding: no voiding problems Passing Gas:: Yes Diet Tolerance:: regular diet Lochia:: Small Feeding Type:: breast feeding Current Pain Level(1-10): 0 doing well Physical Exam Constitutional WD/WN, vitals as above Gastrointestinal (Abdomen) Inspection/Auscultation: abdomen normal to inspection incision c/d/i Musculoskeletal Extremities: extremities normal to inspection Skin no rashes, warm and dry Neurologic patellar DTR's 2+ bilat, sensation intact Psychiatric A+Ox3, euthymic affect Results & Data Vital Signs (Past 12 Hours) Vital Signs Temp Pulse Resp BP Pulse Ox O2 Del Method 01/12/24 09:45 37.1 C 100 H 18 133/86 Room Air 01/12/24 03:06 37.0 C 104 H 20 134/82 97 Room Air 01/12/24 02:14 18 95 01/12/24 01:00 16 92 01/12/24 00:01 18 96 Laboratory Results Laboratory Results - last 72 hr 01/11/24 01/11/24 01/12/24 05:50 05:51 06:13 WBC 10.73 12.53 H RBC 4.26 3.79 L Hgb 11.9 L 10.6 L Hct 35.5 L 32.4 L MCV 83.3 85.5 MCH 27.9 28.0 MCHC 33.5 32.7 RDW Std Deviation 43.5 46.1 RDW Coeff of Carlos 14.4 14.7 H Plt Count 221 195 MPV 11.1 11.6 Immature Gran % (Auto) 0.4 0.4 Neut % (Auto) 74.6 82.7 Lymph % (Auto) 16.5 10.5 [place] % (Auto) 6.6 5.6 Eos % (Auto) 1.6 0.6 Baso % (Auto) 0.3 0.2 Neut # (Auto) 8.01 H 10.37 H Lymph # (Auto) 1.77 1.31 [place] # (Auto) 0.71 H 0.70 H Eos # (Auto) 0.17 0.07 Baso # (Auto) 0.03 0.03 Immature Gran # (Auto) 0.04 0.05 Blood Type O Positive Antibody Screen NEGATIVE
[2024-01-12] MEDS: bisacodyL 5 MG TABEC PO SCH (21:33)
[2024-01-13 06:25] LABS: Hematocrit (blood only) 31.1 % (37.0-47.0); Hemoglobin 10.2 g/dl (12.0-16.0)
[2024-01-13] MEDS ORDERED: bisacodyL 10 MG SUPP PR PRN (09:28)
--- NOTE | 2024-01-13 11:43 | Obstetrical Progress Note ---
Date of Service January 13, 2024 Subjective Ambulation: ambulating normally Voiding: no voiding problems Passing Gas:: Yes Diet Tolerance:: regular diet Lochia:: Small Feeding Type:: breast feeding Current Pain Level(1-10): 0 doing well. plans to go home today Physical Exam Constitutional WD/WN, vitals as above Gastrointestinal (Abdomen) Inspection/Auscultation: abdomen normal to inspection incision c/d/i Musculoskeletal Extremities: extremities normal to inspection Skin no rashes, warm and dry Neurologic patellar DTR's 2+ bilat, sensation intact Psychiatric A+Ox3, euthymic affect Results & Data Vital Signs (Past 12 Hours) Vital Signs Temp Pulse Resp BP Pulse Ox O2 Del Method 01/13/24 07:45 36.8 C 80 16 130/87 96 Room Air Laboratory Results Laboratory Results - last 72 hr 01/11/24 01/11/24 01/12/24 05:50 05:51 06:13 WBC 10.73 12.53 H RBC 4.26 3.79 L Hgb 11.9 L 10.6 L Hct 35.5 L 32.4 L MCV 83.3 85.5 MCH 27.9 28.0 MCHC 33.5 32.7 RDW Std Deviation 43.5 46.1 RDW Coeff of Carlos 14.4 14.7 H Plt Count 221 195 MPV 11.1 11.6 Immature Gran % (Auto) 0.4 0.4 Neut % (Auto) 74.6 82.7 Lymph % (Auto) 16.5 10.5 [place] % (Auto) 6.6 5.6 Eos % (Auto) 1.6 0.6 Baso % (Auto) 0.3 0.2 Neut # (Auto) 8.01 H 10.37 H Lymph # (Auto) 1.77 1.31 [place] # (Auto) 0.71 H 0.70 H Eos # (Auto) 0.17 0.07 Baso # (Auto) 0.03 0.03 Immature Gran # (Auto) 0.04 0.05 Blood Type O Positive Antibody Screen NEGATIVE 01/13/24 05:51 WBC RBC Hgb 10.2 L Hct 31.1 L MCV MCH MCHC RDW Std Deviation RDW Coeff of Carlos Plt Count MPV Immature Gran % (Auto) Neut % (Auto) Lymph % (Auto) [place] % (Auto) Eos % (Auto) Baso % (Auto) Neut # (Auto) Lymph # (Auto) [place] # (Auto) Eos # (Auto) Baso # (Auto) Immature Gran # (Auto) Blood Type Antibody Screen
== END 2024-01-13 13:05 | disposition home or self-care (01) | DRG 788 ==
LOC: 4S1 05:37 → EDSTATUS 09:00 → 4E2 12:34